=== PATIENT | female | born 1990 | race Caucasian/White ===

== ENCOUNTER 2016-07-01 13:23 | Inpatient (IN) | payer OTHER ==
[~2016-07-01] VITALS: Ht 170.2 cm; Wt 105.8 kg
--- NOTE | ~2016-07-01 | HC ---
[facility] [place] [address] CONSULTATION Name: JO ANN FRIAS Room #: 212-P ADM IN M.R.#: [id number] Admission: 07/01/16 Attend Phys: Adam Kauffman MD Discharge: Date of : 86 Report #: [id number] THIS REPORT FOR: //name// CC: JOSÉ physician/PCP Adam Kauffman DATE OF SERVICE: 07/02/2016. HISTORY OF PRESENT ILLNESS: This 25-year-old female is admitted with diabetic crisis with hyperglycemia and lactic acidosis. She recently had an infected left hand, possibly due to a spider bite. This was treated 2 weeks ago in [place] where she had debridement and amputation at about the level of the interphalangeal joint. She states she has had some ongoing pain and swelling, symptoms are slowly improving. She has moved back here to [place] and now has poor diabetic control and increased pain, the left hand. She has been admitted for further evaluation. At the time of my evaluation, she is just on the way to an MRI to evaluate the hand. She feels poorly in general and is febrile. Her primary complaint is the left hand and thumb. The thumb wound reveals a healing suture line at about the level of the interphalangeal joint. There is still some redness and warmth, but very minimal drainage. There is tenderness to palpation in the region of the incision line. There is not much pain more proximally, there is slight swelling of the hand and thenar eminence, but no redness or point tenderness and nothing which would suggest a significant flexor tenosynovitis nor abscess formation. The other digits look fine. More proximally, the wrist and forearm are unremarkable. She has no other areas of significant injury. At this point, I do not have radiographic imaging yet, I think it will be prudent to go ahead with MRI study and look for abscess or bony involvement or flexor tenosynovitis. At this point, however, the findings are more consistent with a soft tissue infection which has been adequately debrided, the suture line looks satisfactory at this point and I would be inclined to favor conservative management with ongoing appropriate antibiotics, rest, elevation with metabolic management for her poor diabetic control. I will comment further once the MRI is available for review. <ELECTRONICALLY SIGNED> By: Neeraj Shea MD 07/03/16 0912 1054 1307 Neeraj Shea MD /nt
--- NOTE | ~2016-07-01 | HC ---
[facility] [place] [address] CONSULTATION Name: JO ANN FIRAS Room #: 212-P ADM IN M.R.#: [id number] Admission: 07/01/16 Attend Phys: Adam Kauffman MD Discharge: Date of : 86 Report #: [id number] THIS REPORT FOR: //name// CC: JOSÉ physician/PCP Adam Kauffman INFECTIOUS DISEASES CONSULTATION REASON FOR CONSULTATION: I was asked to evaluate left hand following amputation 2 weeks ago of her first distal thumb due to a "spider bite." This was performed in [place]. Did not have the details of that hospitalization. She was dismissed on Bactrim, which she completed several days prior to her admission. She developed acute onset of nausea, vomiting and diarrhea. Along with diarrhea caused elevated blood sugars. She is a type 1 diabetic. Comes in with ketoacidosis. Still has a fair amount of pain in her left thumb and hand. No purulent drainage has been identified. REVIEW OF SYSTEMS: Notes no cough or sputum production. No dysuria. No other rashes. She has had MRSA, skin and soft tissue infection in the past. ALLERGIES: CODEINE, DOXYCYCLINE, FENTANYL, HYDROCODONE, PENICILLIN. MEDICATIONS: As noted on her MAR, which were reviewed. Vancomycin. PAST MEDICAL HISTORY: , diabetes, anxiety, left ovarian cyst, status post hysterectomy, cholecystectomy, right oophorectomy, appendectomy, diabetes, herniorrhaphy. FAMILY HISTORY: Heart disease and diabetes. SOCIAL HISTORY: Nonsmoker, no significant alcohol intake. Works for the [employer]. PHYSICAL EXAMINATION: VITAL SIGNS: Afebrile, hemodynamically stable. GENERAL: She was alert and cooperative. O2 saturation was normal on room air. HEENT: Unremarkable. LUNGS: Were clear. HEART: Regular without murmur. ABDOMEN: Soft and nontender. EXTREMITIES: Left thumb incision was well approximated. She had mild swelling, but no evidence of cellulitis. She was fairly tender thumb and the thenar region. Her wrist was unremarkable. Pulses in the wrist were normal. Sensation in the hand intact. LABORATORY STUDIES: Sodium 139, potassium 3.2, bicarbonate of 22, up from 17 on admission. BUN 3, creatinine 0.5, blood glucose 186, down from greater than [address] [address] CONSULTATION Name: JO ANN FRIAS Room #: [address] [place] [address] IN .R.#: [id number] Admission: 07/01/16 Attend Phys: Adam Kauffman MD Discharge: Date of : 86 Report #: [id number] on admission. Lactate 1.4. Drug screen positive for benzodiazepine. Hemoglobin 11.7, white count 8.5, platelet count 229,000. Differential unremarkable. Beta hCG negative. Urinalysis 3+ glucose, 1+ plus protein, no ketones. ABG on room air showed a pO2 of 100, pCO2 of 24, pH 7.4. Blood cultures are pending. Stool culture pending. Chest x-ray clear. MRI scan of her hand showed postoperative changes. IMPRESSION AND PLAN: A 25-year-old diabetic with DKA. Recent gangrene of her left distal thumb. Whether this was truly a brown recluse spider bite or was an ischemic event and secondary infection is yet to be determined. I would recommend that we continue vancomycin and obtain microbiology reports and operative report from her [facility]. Get her blood glucose under control, continue with dressing changes and will reevaluate in the next 24 hours. Discussed the case with Orthopedic Surgery. I agree no surgical intervention is necessary at this time. We would also check a stool for C. difficile considering her recent antibiotic use. <ELECTRONICALLY SIGNED> By: Keith Phelan MD 07/03/16 1027 1404 1844 Keith Phelan MD /nt
[~2016-07-01 13:23] MED LIST: ADVIL200 M1 PO; APAP650 PO; ATIVAN0.5 MG PO; BACTRIM DS TAB1 EACH PO; CIPROFLOXACIN500 M1 PO; COLACE 100 MG100 MG PO; DIFLUCAN150 M1 PO; ENDOCET 5-3251 EACH PO; GABAPENTIN600 M1 PO; GLIPIZIDE 10 MG10 MG PO; GLUCOTROL5 MG PO; HUMALOG PE100 UNIT/M SUBQ; IBUPROFEN 600600 M1 PO; LANTUS100 UNIT/M SUBQ; LOESTRIN1 EAC1 PO; LOPERAMIDE 2 MG2 M1 PO; LORTAB 10-3251 EACH PO; MACROBID 100 M100 M1 PO; METFORMIN HCL500 MG PO; MIRALAX17 GM PO; NAPROSYN500 MG PO; NEURONTIN300 MG PO; NOVOLOG100 UNIT/1 SUBQ; PAIN RELIEVER325 MG PO; PEPCID20 MG PO; PERCOCET 5-3251 EACH PO; PERCOCET 7.5-31 EACH PO; PERCOCET PO; PHENERGAN 25 MG25 M1 PO; PHENERGAN50 MG RC; PROMS25 WY RECTAL; REGLAN 10 MG TA10 MG PO; SENNA PO; TRAMADOL 50 MG50 MG PO; TRAZODONE HCL50 MG PO; TYLENOL325 MG PO; VALIUM5 MG PO; XANAX 0.5 MG0.5 MG PO; ZOFRAN ODT4 MG PO
[2016-07-01 13:27] VITALS: BP 146/81
[2016-07-01 14:16] LABS: ABG SAMPLE TYPE ARTERIAL; BE(vivo) -8.1 mmol/L (-2 to +3); LACTATE 5.03 mmol/L (0.5-2.0); O2(CT) 15.9 mL/dL (15.0-23.0); O2Hb 96.9 % (92.0-98.0); PCO2 24.6 mmHg (35.0-45.0); PO2 100.9 mmHg (80.0-100.0); STICK SITE R.RADIAL; pH 7.404 (7.360-7.450); sO2 97.8 % (92.0-98.0); tCO2 15.8 mmol/L (24.0-30.0)
[2016-07-01 14:18] LABS: URINE BILIRUBIN NEGATIVE (Negative); URINE BLOOD 1+ (Negative); URINE COLOR YELLOW; URINE GLUCOSE-RANDOM* 3+ (Negative); URINE KETONES NEGATIVE (Negative); URINE LEUKOCYTES-REFLEX NEGATIVE (Negative); URINE PROTEIN (DIPSTICK) NEGATIVE (Negative); URINE SPECIFIC GRAVITY <= 1.005 (1.003-1.035); URINE UROBILINOGEN 0.2 E.U./dl (0.2-1.0)
[2016-07-01 14:33] LABS: SQUAMOUS 4-10 Moderate /LPF (0-3)
[2016-07-01 14:34] LABS: CASTS None Seen /LPF (None Seen); CRYSTALS None Seen /LPF (None Seen); URINE RBC 3-10 Few /HPF (0-2); URINE WBC-REFLEX 0-5 Rare /HPF (0-5)
[2016-07-01 14:46] LABS: ABSOLUTE NEUTROPHILS 4.4 thou/uL (1.4-8.2); BASOPHILS 0.4 % (0.0-2.0); EOSINOPHILS 1.4 % (0.0-3.0); HEMOGLOBIN 11.7 gm/dL (12.0-15.0); LYMPHOCYTES 35.3 % (24.0-44.0); MCH 24.9 pg (26.0-34.0); MCHC 32.6 g/dL (28.0-37.0); MCV 76.3 fL (80.0-100.0); MONOCYTES 6.3 % (1.0-8.0); PLATELET COUNT 229 thou/uL (150-400); POLYS 56.6 % (36.0-66.0); RBC 4.72 mil/uL (4.20-5.00); RDW 16.6 % (10.5-14.5); WBC 8.5 thou/uL (4.0-11.0)
[2016-07-01 14:48] LABS: MANUAL DIFF NO
[2016-07-01 15:01] LABS: CALCIUM 9.4 mg/dL (8.5-10.1); CREATININE 0.9 mg/dL (0.6-1.0); POTASSIUM 4.2 mmol/L (3.5-5.1)
[2016-07-01 15:21] LABS: AMP/METHAMP Negative (Negative); BARBITURATES Negative (Negative); BENZODIAZEPINES POSITIVE (Negative); COCAINE Negative (Negative); METHADONE Negative (Negative); OPIATES Negative (Negative); PCP Negative (Negative); THC Negative (Negative)
[2016-07-01 18:24] VITALS: BP 150/87
[2016-07-01 20:19] VITALS: BP 143/101
[2016-07-01 20:30] VITALS: BP 148/91
[2016-07-01 22:01] VITALS: BP 146/92
[2016-07-01 23:00] VITALS: BP 146/97
[2016-07-02] VITALS (15 sets, daily range): BP systolic 132–176; BP diastolic 73–124
[2016-07-02 04:55] LABS: CALCIUM 8.6 mg/dL (8.5-10.1); CREATININE 0.5 mg/dL (0.6-1.0)
[2016-07-02 04:57] LABS: POTASSIUM 3.2 mmol/L (3.5-5.1)
[2016-07-03 00:32] VITALS: BP 142/87
[2016-07-03 04:26] VITALS: BP 131/75
[2016-07-03 07:38] LABS: HEMATOCRIT 31.3 % (37.0-47.0); HEMOGLOBIN 10.4 gm/dL (12.0-15.0); MCH 24.7 pg (26.0-34.0); MCHC 33.3 g/dL (28.0-37.0); MCV 74.1 fL (80.0-100.0); RBC 4.22 mil/uL (4.20-5.00); WBC 5.5 thou/uL (4.0-11.0)
[2016-07-03 07:48] VITALS: BP 147/88
[2016-07-03 08:38] LABS: CALCIUM 8.8 mg/dL (8.5-10.1); CREATININE 0.5 mg/dL (0.6-1.0); POTASSIUM 3.7 mmol/L (3.5-5.1)
[2016-07-03 10:55] VITALS: BP 143/95
[2016-07-03 16:00] VITALS: BP 145/88
[2016-07-03 19:45] VITALS: BP 150/101
[2016-07-04 07:09] LABS: HEMATOCRIT 32.1 % (37.0-47.0); HEMOGLOBIN 10.6 gm/dL (12.0-15.0); MCH 24.7 pg (26.0-34.0); MCV 74.7 fL (80.0-100.0); RBC 4.3 mil/uL (4.20-5.00); RDW 16.7 % (10.5-14.5); WBC 5.6 thou/uL (4.0-11.0)
[2016-07-04 07:17] LABS: CALCIUM 8.8 mg/dL (8.5-10.1); CREATININE 0.6 mg/dL (0.6-1.0); POTASSIUM 3.3 mmol/L (3.5-5.1)
[2016-07-04 07:45] VITALS: BP 157/106
[2016-07-04 16:19] VITALS: BP 146/93
[2016-07-04 20:00] VITALS: BP 151/91
[2016-07-05 04:00] VITALS: BP 136/86
[2016-07-05 05:29] LABS: HEMATOCRIT 31.4 % (37.0-47.0); HEMOGLOBIN 10.2 gm/dL (12.0-15.0); MCH 24.6 pg (26.0-34.0); MCHC 32.5 g/dL (28.0-37.0); MCV 75.8 fL (80.0-100.0); RBC 4.14 mil/uL (4.20-5.00); RDW 17.4 % (10.5-14.5); WBC 5.1 thou/uL (4.0-11.0)
[2016-07-05 05:40] LABS: CALCIUM 8.5 mg/dL (8.5-10.1); CREATININE 0.7 mg/dL (0.6-1.0); POTASSIUM 3.9 mmol/L (3.5-5.1)
[2016-07-05 09:07] VITALS: BP 123/86
[2016-07-05] MEDS ORDERED: PERCOCET 7.5-31 EACH PO (11:28)
[2016-07-05] MEDS ORDERED: BACTRIM DS TAB1 EAC1 PO (11:28)
[2016-07-05] MEDS ORDERED: OXYCODONE HCL 55 MG PO (11:37)
[2016-07-05] MEDS ORDERED: DIFLUCAN200 MG PO (11:37)
[2016-07-05 12:06] VITALS: BP 123/86
[2016-07-05 15:07] VITALS: BP 123/86
== END 2016-07-05 15:08 | disposition home or self-care (01) | DRG 872 ==
LOC: ER 13:23 → 2N 16:46 → EROBS 16:46 → ICU 18:24 → 2N 07-02 14:43 → 5S 07-03 11:03
PROVIDERS: Emergency Medicine; Internal Medicine
PROC: 02HV33Z Insertion of Infusion Device into Superior Vena Cava, Percutaneous Approach (ICD-10-PCS; principal; 2016-07-01)
PROC: B548ZZA Ultrasonography of Superior Vena Cava, Guidance (ICD-10-PCS; principal; 2016-07-01)
DX: A41.9 Sepsis, unspecified organism (principal); E87.1 Hypo-osmolality and hyponatremia; R65.20 Severe sepsis without septic shock; R19.7 Diarrhea, unspecified; L03.012 Cellulitis of left finger; E10.65 Type 1 diabetes mellitus with hyperglycemia; F41.9 Anxiety disorder, unspecified; E83.42 Hypomagnesemia; Z90.49 Acquired absence of other specified parts of digestive tract; Z90.721 Acquired absence of ovaries, unilateral; Z88.6 Allergy status to analgesic agent; Z88.1 Allergy status to other antibiotic agents; Z88.0 Allergy status to penicillin; Z79.899 Other long term (current) drug therapy; Z86.14 Personal history of Methicillin resistant Staphylococcus aureus infection; Z79.4 Long term (current) use of insulin; Z83.3 Family history of diabetes mellitus; Z82.49 Family history of ischemic heart disease and other diseases of the circulatory system; Z90.710 Acquired absence of both cervix and uterus; Z89.012 Acquired absence of left thumb
CPT/HCPCS: 10078; 10081; 10785; 27000

== ENCOUNTER 2017-02-16 19:26 | Inpatient (IN) | payer OTHER ==
[~2017-02-16] VITALS: Ht 170.2 cm; Wt 95.3 kg
[~2017-02-16 19:26] MED LIST changes: +BACTRIM DS TAB1 EAC1 PO; +DIFLUCAN200 MG PO; +IRON325 PO; +NEURONTIN 300300 M1 PO; +OXYCODONE HCL 55 MG PO; +SENOKOT-S1 TA1 PO
[2017-02-16 19:29] VITALS: BP 125/66
[2017-02-16 20:24] LABS: HEMATOCRIT 31.1 % (37.0-47.0); HEMOGLOBIN 9.6 gm/dL (12.0-15.0); MCH 23.4 pg (26.0-34.0); MCHC 30.9 g/dL (28.0-37.0); MCV 75.6 fL (80.0-100.0); PLATELET COUNT 196 thou/uL (150-400); RBC 4.11 mil/uL (4.20-5.00); RDW 23.1 % (10.5-14.5); WBC 4.8 thou/uL (4.0-11.0)
[2017-02-16 20:36] LABS: ALBUMIN 3.4 g/dL (3.4-5.0); ANION GAP 12 mmol/L (7-16); BUN 7 mg/dL (7-18); CALCIUM 8.1 mg/dL (8.5-10.1); CHLORIDE 95 mmol/L (98-107); CO2 20 mmol/L (21-32); CREATININE 0.9 mg/dL (0.6-1.0); DIRECT BILIRUBIN < 0.1 mg/dL (<0.1-0.3); LIPASE 116 U/L (73-393); POTASSIUM 3.9 mmol/L (3.5-5.1); SGOT 21 U/L (15-37); SGPT 30 U/L (30-65); SODIUM 127 mmol/L (136-145); TOTAL BILIRUBIN 0.3 mg/dL (<0.1-1.0); TOTAL PROTEIN 6.8 g/dL (6.4-8.2)
[2017-02-16 20:38] LABS: GLUCOSE 558 mg/dL (74-106)
[2017-02-16 20:45] LABS: ABSOLUTE NEUTROPHILS 2.9 thou/uL (1.4-8.2); ANISOCYTOSIS 2+; HYPOCHROMASIA 1+
[2017-02-16 21:06] LABS: URINE BILIRUBIN NEGATIVE (Negative); URINE BLOOD NEGATIVE (Negative); URINE CLARITY CLEAR; URINE COLOR YELLOW; URINE GLUCOSE-RANDOM* 3+ (Negative); URINE KETONES NEGATIVE (Negative); URINE LEUKOCYTES-REFLEX NEGATIVE (Negative); URINE NITRITE-REFLEX NEGATIVE (Negative); URINE PROTEIN (DIPSTICK) NEGATIVE (Negative); URINE SPECIFIC GRAVITY <= 1.005 (1.005-1.035); URINE UROBILINOGEN 0.2 E.U./dl (0.2-1.0)
[2017-02-17] VITALS (7 sets, daily range): BP systolic 114–137; BP diastolic 64–94
[2017-02-17 07:35] LABS: HEMATOCRIT 28.8 % (37.0-47.0); HEMOGLOBIN 9.4 gm/dL (12.0-15.0); MCH 24.2 pg (26.0-34.0); MCHC 32.5 g/dL (28.0-37.0); MCV 74.6 fL (80.0-100.0); RBC 3.87 mil/uL (4.20-5.00); RDW 23.6 % (10.5-14.5); WBC 4.5 thou/uL (4.0-11.0)
[2017-02-17 07:46] LABS: CALCIUM 8.5 mg/dL (8.5-10.1); CREATININE 0.5 mg/dL (0.6-1.0); POTASSIUM 3.4 mmol/L (3.5-5.1)
[2017-02-18 03:25] VITALS: BP 135/82
[2017-02-18 08:00] VITALS: BP 116/67
[2017-02-18] MEDS ORDERED: CLEOCIN HCL150 MG PO (10:12)
[2017-02-18] MEDS ORDERED: TRAMADOL 50 MG50 MG PO (10:12)
[2017-02-18 12:23] VITALS: BP 116/67
[2017-09-26] MEDS ORDERED: ZOFRAN ODT4 MG PO (23:31)
[2017-09-26] MEDS ORDERED: PROMS25 WY RECTAL (23:31)
[2017-09-26] MEDS ORDERED: PHENERGAN 25 MG25 M1 PO (23:31)
== END 2017-02-19 05:25 | disposition home or self-care (01) | DRG 602 ==
LOC: ER 19:26 → 4N 02-17 00:13
PROVIDERS: Emergency Medicine; Nurse Practitioner Family
DX: L03.011 Cellulitis of right finger (principal); E10.10 Type 1 diabetes mellitus with ketoacidosis without coma; F31.9 Bipolar disorder, unspecified; D64.9 Anemia, unspecified; F41.9 Anxiety disorder, unspecified; Z98.891 History of uterine scar from previous surgery; Z90.49 Acquired absence of other specified parts of digestive tract; Z90.721 Acquired absence of ovaries, unilateral; Z89.012 Acquired absence of left thumb; Z79.4 Long term (current) use of insulin; Z79.899 Other long term (current) drug therapy; Z88.5 Allergy status to narcotic agent; Z88.0 Allergy status to penicillin; Z88.8 Allergy status to other drugs, medicaments and biological substances; Z83.3 Family history of diabetes mellitus; Z82.49 Family history of ischemic heart disease and other diseases of the circulatory system
CPT/HCPCS: 10091

== ENCOUNTER 2017-03-23 22:33 | Emergency (ER) | payer OTHER ==
[~2017-03-23] VITALS: Ht 170.2 cm; Wt 97.5 kg
[~2017-03-23 22:33] MED LIST changes: +CLEOCIN HCL150 MG PO
[2017-03-23 23:34] LABS: BE(vivo) -5.7 mmol/L (-2 to +3); HCO3 18.9 mmol/L (22.0-26.0); PCO2 VENOUS 33.9 mmHg (41.0-51.0); PO2 VENOUS 37.7 mmHg (35.0-45.0)
[2017-03-24 00:06] LABS: ABSOLUTE NEUTROPHILS 3.5 thou/uL (1.4-8.2); BASOPHILS 0.5 % (0.0-2.0); EOSINOPHILS 3.3 % (0.0-3.0); HEMATOCRIT 32.6 % (37.0-47.0); HEMOGLOBIN 10.7 gm/dL (12.0-15.0); LYMPHOCYTES 38.6 % (24.0-44.0); MCH 24.4 pg (26.0-34.0); MCHC 32.8 g/dL (28.0-37.0); MCV 74.4 fL (80.0-100.0); MONOCYTES 5.5 % (1.0-8.0); PLATELET COUNT 268 thou/uL (150-400); POLYS 52.1 % (36.0-66.0); RBC 4.38 mil/uL (4.20-5.00); RDW 18.5 % (10.5-14.5); WBC 6.8 thou/uL (4.0-11.0)
[2017-03-24 00:07] LABS: CALCIUM 8.6 mg/dL (8.5-10.1); CREATININE 0.6 mg/dL (0.6-1.0); POTASSIUM 3.2 mmol/L (3.5-5.1)
[2017-03-24 00:13] LABS: ALBUMIN 3.5 g/dL (3.4-5.0); TOTAL BILIRUBIN 0.2 mg/dL (<0.1-1.0)
[2017-03-24] MEDS ORDERED: ONDANSETRON HCL4 M2 PO ×2 (00:45→00:53)
[2017-03-24] MEDS ORDERED: DOXYCYCLINE 10100 MG PO (00:45)
[2017-03-24] MEDS ORDERED: CLEOCIN HCL150 MG PO (00:52)
[2017-03-24 02:09] VITALS: BP 127/83
[2017-09-26] MEDS ORDERED: PROMS25 WY RECTAL (23:31)
[2017-09-26] MEDS ORDERED: PHENERGAN 25 MG25 M1 PO (23:31)
[2017-09-26] MEDS ORDERED: ZOFRAN ODT4 MG PO (23:31)
== END 2017-03-24 02:10 | disposition home or self-care (01) ==
LOC: ER 22:33
PROVIDERS: Physician Assistant
DX: S61.206D Unspecified open wound of right little finger without damage to nail, subsequent encounter (principal); X58.XXXD Exposure to other specified factors, subsequent encounter; E11.9 Type 2 diabetes mellitus without complications; F41.9 Anxiety disorder, unspecified; Z90.49 Acquired absence of other specified parts of digestive tract; Z88.0 Allergy status to penicillin; Z88.5 Allergy status to narcotic agent

== ENCOUNTER 2017-04-25 17:05 | Inpatient (IN) | payer OTHER ==
[~2017-04-25] VITALS: Ht 170.2 cm; Wt 95.3 kg
--- NOTE | ~2017-04-25 | HC ---
[facility] [place] [address] CONSULTATION Name: JO ANN FRIAS Room #: 447-P [facility] IN M.R.#: [id number] Admission: 04/25/17 Attend Phys: Fei Mcgee DO Discharge: 04/28/17 Date of : 88 Report #: [id number] THIS REPORT FOR: //name// CC: FAM unknown Fei Mcgee DATE OF SERVICE: 04/26/2017 HISTORY OF PRESENT ILLNESS: This is a 26-year-old female with poorly controlled insulin-dependent diabetes and peripheral vascular disease, who presents with a new infection involving the right hand. 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 I believe she has had a wound at the right hand, fifth metacarpophalangeal joint, which was treated elsewhere with surgical debridement about 3 weeks ago. I understand she had an MRI which did show evidence of joint fluid and possible bony involvement. I understand cultures at that time have remained no growth. She has been on ongoing antibiotics. She now presents with persistent pain and mild swelling noting some drainage from the edges of the old surgical wound. At the time of my evaluation, she is somewhat emotional and clearly has difficulty with pain management and chronic health issues. She notes the right hand is painful and puffy and notes a bit of tingling and numbness involving the fifth finger. Objectively however, there is a fairly clean and dry longitudinal wound over the dorsal aspect of the fifth metacarpophalangeal joint. There is just a bit of open granulating tissue at the upper and lower aspect of this wound. However, at this point, there is no drainage. There is no apparent purulence. There is only minor swelling and no significant redness or warmth around this area. She does have generalized discomfort and stiffness at the fifth metacarpophalangeal joint consistent with synovitis and inflammation. The distal finger appears to be well perfused. There are no significant problems more proximally along the hand or forearm. We do not have new x-rays or MRI study and I do not have the outside MRI available for review. At this point, I doubt that further surgical debridement would be necessary given the current appearance, but I think a new MRI study would be appropriate. Hopefully, we can compare with the previous MRI study if that one is available as well. At this point, I would continue with her current rest, elevation and IV antibiotic regimen. I will defer to Infectious Disease with regard to her medical management. Pending the MRI findings, I may ask my partner, Dr. Hudson to see her as well if she is available. <ELECTRONICALLY SIGNED> By: Neeraj Shea MD 04/30/17 0750 1225 1327 Neeraj Shea MD /nt
[~2017-04-25 17:05] MED LIST changes: +DOXYCYCLINE 10100 MG PO; +ONDANSETRON HCL4 M2 PO
[2017-04-25 17:08] VITALS: BP 138/86
[2017-04-25] MEDS ORDERED: QUETIAPINE FUM100 MG PO (17:52)
[2017-04-25 18:32] LABS: ABSOLUTE NEUTROPHILS 3.4 thou/uL (1.4-8.2); BASOPHILS 0.5 % (0.0-2.0); EOSINOPHILS 1.9 % (0.0-3.0); HEMATOCRIT 34.2 % (37.0-47.0); HEMOGLOBIN 10.8 gm/dL (12.0-15.0); LYMPHOCYTES 28.4 % (24.0-44.0); MCH 24.1 pg (26.0-34.0); MCHC 31.6 g/dL (28.0-37.0); MCV 76.1 fL (80.0-100.0); MONOCYTES 8.7 % (1.0-8.0); PLATELET COUNT 216 thou/uL (150-400); POLYS 60.5 % (36.0-66.0); RBC 4.49 mil/uL (4.20-5.00); RDW 19.2 % (10.5-14.5); WBC 5.6 thou/uL (4.0-11.0)
[2017-04-25 18:46] LABS: CALCIUM 9.2 mg/dL (8.5-10.1); POTASSIUM 4.1 mmol/L (3.5-5.1)
[2017-04-25 18:49] LABS: ALBUMIN 3.8 g/dL (3.4-5.0); TOTAL BILIRUBIN 0.3 mg/dL (<0.1-1.0); TOTAL PROTEIN 7.7 g/dL (6.4-8.2)
[2017-04-25 19:03] LABS: ANISOCYTOSIS 1+; OVALOCYTES OCCASIONAL
[2017-04-25 19:21] LABS: URINE BILIRUBIN NEGATIVE (Negative); URINE BLOOD 1+ (Negative); URINE CLARITY CLEAR; URINE COLOR YELLOW; URINE GLUCOSE-RANDOM* 3+ (Negative); URINE KETONES NEGATIVE (Negative); URINE LEUKOCYTES-REFLEX NEGATIVE (Negative); URINE NITRITE-REFLEX NEGATIVE (Negative); URINE PROTEIN (DIPSTICK) NEGATIVE (Negative); URINE SPECIFIC GRAVITY <= 1.005 (1.005-1.035); URINE UROBILINOGEN 0.2 E.U./dl (0.2-1.0)
[2017-04-25 19:34] LABS: BACTERIA-REFLEX None Seen /HPF (None Seen); CASTS None Seen /LPF (None Seen); SQUAMOUS 4-10 Moderate /LPF (0-3); URINE RBC 0-2 Rare /HPF (0-2); URINE WBC-REFLEX None Seen /HPF (0-5)
[2017-04-25 19:35] LABS: CRYSTALS None Seen /LPF (None Seen); YEAST-REFLEX Present (None Seen)
[2017-04-25 20:15] LABS: BE(vivo) -5.8 mmol/L (-2 to +3); HCO3 18.9 mmol/L (22.0-26.0); PCO2 VENOUS 34.7 mmHg (41.0-51.0); PO2 VENOUS 51.2 mmHg (35.0-45.0)
[2017-04-25 20:39] VITALS: BP 141/88
[2017-04-25 20:59] VITALS: BP 117/90
[2017-04-26 02:43] LABS: HEMATOCRIT 33.9 % (37.0-47.0); HEMOGLOBIN 10.9 gm/dL (12.0-15.0); MCH 23.9 pg (26.0-34.0); MCV 74.7 fL (80.0-100.0); RBC 4.54 mil/uL (4.20-5.00); RDW 19.3 % (10.5-14.5); WBC 6.3 thou/uL (4.0-11.0)
[2017-04-26 02:48] LABS: CREATININE 0.7 mg/dL (0.6-1.0); POTASSIUM 3.6 mmol/L (3.5-5.1)
[2017-04-26 04:02] VITALS: BP 134/80
[2017-04-26 08:28] VITALS: BP 131/87
[2017-04-26 16:15] VITALS: BP 144/82
[2017-04-26 21:32] VITALS: BP 130/92
[2017-04-27 03:40] VITALS: BP 125/82
[2017-04-27 06:18] LABS: ABSOLUTE NEUTROPHILS 3.4 thou/uL (1.4-8.2); BASOPHILS 0.2 % (0.0-2.0); EOSINOPHILS 2.3 % (0.0-3.0); HEMATOCRIT 30.6 % (37.0-47.0); HEMOGLOBIN 9.8 gm/dL (12.0-15.0); LYMPHOCYTES 20.6 % (24.0-44.0); MCH 24.2 pg (26.0-34.0); MCHC 32.2 g/dL (28.0-37.0); MCV 75.2 fL (80.0-100.0); MONOCYTES 6.4 % (1.0-8.0); PLATELET COUNT 188 thou/uL (150-400); POLYS 70.5 % (36.0-66.0); RBC 4.07 mil/uL (4.20-5.00); RDW 19.8 % (10.5-14.5); WBC 4.9 thou/uL (4.0-11.0)
[2017-04-27 06:31] LABS: CALCIUM 8.1 mg/dL (8.5-10.1); CREATININE 0.6 mg/dL (0.6-1.0); POTASSIUM 3.6 mmol/L (3.5-5.1)
[2017-04-27 08:35] VITALS: BP 126/72
[2017-04-27 13:45] VITALS: BP 121/80
[2017-04-27 16:37] VITALS: BP 118/72
[2017-04-27 19:20] VITALS: BP 112/69
[2017-04-28 04:00] VITALS: BP 99/61
[2017-04-28 08:00] VITALS: BP 123/71
[2017-04-28] MEDS ORDERED: LINEZOLID600 MG PO (08:20)
[2017-04-28] MEDS ORDERED: TRAMADOL 50 MG50 MG PO (08:21)
[2017-04-28 15:21] VITALS: BP 123/71
[2017-09-26] MEDS ORDERED: PHENERGAN 25 MG25 M1 PO (23:31)
[2017-09-26] MEDS ORDERED: PROMS25 WY RECTAL (23:31)
[2017-09-26] MEDS ORDERED: ZOFRAN ODT4 MG PO (23:31)
== END 2017-04-28 16:30 | disposition home or self-care (01) | DRG 638 ==
LOC: ER 17:05 → EROBS 20:36 → 4S 21:33
PROVIDERS: Emergency Medicine; Family Medicine; Nurse Practitioner Family
DX: E11.65 Type 2 diabetes mellitus with hyperglycemia (principal); E87.2 Acidosis; L03.113 Cellulitis of right upper limb; F41.9 Anxiety disorder, unspecified; E86.0 Dehydration; Z90.49 Acquired absence of other specified parts of digestive tract; Z89.012 Acquired absence of left thumb; Z79.899 Other long term (current) drug therapy; Z88.5 Allergy status to narcotic agent; Z88.6 Allergy status to analgesic agent; Z88.0 Allergy status to penicillin; Z88.8 Allergy status to other drugs, medicaments and biological substances; Z82.49 Family history of ischemic heart disease and other diseases of the circulatory system; Z83.3 Family history of diabetes mellitus
CPT/HCPCS: 10100

== ENCOUNTER 2017-08-16 20:07 | Inpatient (IN) | payer OTHER ==
[~2017-08-16] VITALS: Ht 170.2 cm; Wt 103.4 kg
--- NOTE | ~2017-08-16 | EKG ---
[address] [place] [address] ELECTROCARDIOGRAM REPORT Name: JO ANN FRIAS Room #: 455-P ADM IN M.R.#: [id number] Admission: 08/17/17 Attend Phys: Edwin Catalan Discharge: Date of : 86 Report #: [id number] THIS REPORT FOR: //name// [facility] ED Test Date: 2017-08-16 Test Time: 20:54:30 Pat Name: JO ANN FRIAS Department: Room: Gender: F Tier And Detonator: DANIEL : 1990 Requested By: Yuriy Telles Order Number: [id number] MD: Jas Powers Measurements Intervals [place] Rate: 115 P: 53 TX: 174 QRS: 81 QRSD: 80 T: 14 QT: 347 QTc: 480 Interpretive Statements Sinus tachycardia Poor R wave progression Nonspecific T wave abnormality Compared to ECG 08/15/2016 11:04:57 No significant change was found Electronically Signed On 08-17-2017 8:14:21 CDT by Jas Powers [email or web address] <ELECTRONICALLY SIGNED> By: Jas Powers MD, [facility] 08/17/17813 53 53 Jas Powers MD, [facility] /EPI
--- NOTE | ~2017-08-16 | HC ---
[facility] [place] [address] CONSULTATION Name: JO ANN FRIAS Room #: 455-P ADM IN M.R.#: [id number] Admission: 08/17/17 Attend Phys: Edwin Catalan Discharge: Date of : 86 Report #: [id number] THIS REPORT FOR: //name// CC: FAM unknown Edwin Catalan DATE OF SERVICE: 08/17/2017 REFERRING PROVIDER: Edwin Catalan MD. REASON FOR CONSULT: Abdominal pain. HISTORY OF PRESENT ILLNESS: The patient is a 27-year-old obese female known to us from multiple prior admissions at [facility] with questionable malingering whereby she had multiple infected power ports and a finger abscess that required debridement. The patient now presents to the Emergency Room at [facility] with nausea, vomiting and hyperglycemia where her blood sugars were found to be greater than 600 on admission. The patient has had a prior umbilical hernia repair with mesh as well as a cholecystectomy, appendectomy and oophorectomy and complains of significant bulging throughout her abdominal wall that has begun only over the past 2 days. She states she felt something pop out from her abdomen and that is when the nausea and vomiting started. CT scan of the abdomen and pelvis was obtained and no mention was made of abdominal wall hernia and per my review, I see no evidence of herniation whatsoever as well. But, it was for her abdominal pain with bulging that I am asked to evaluate. PAST MEDICAL HISTORY: Diabetes mellitus, chronic anemia, anxiety, prior cholecystectomy, oophorectomy and umbilical hernia repair with mesh. HOME MEDICATIONS: Valium, insulin Lantus, iron, Seroquel, insulin glargine, insulin lispro. ALLERGIES: SEVERAL AND INCLUDE PENICILLIN, DOXYCYCLINE, FENTANYL, HYDROCODONE AND CODEINE. FAMILY HISTORY: Reviewed and noncontributory. SOCIAL HISTORY: The patient does not utilize tobacco, alcohol or illicit drugs. REVIEW OF SYSTEMS: GENERAL: The patient denies nocturnal fevers or chills. HEENT: No change in vision, change in hearing. NECK: No swelling or difficulty swallowing. HEART: No chest pain or palpitations. LUNGS: No cough or shortness of breath. [facility] [address] [place] [address] CONSULTATION Name: JO ANN FRIAS Room #: 455-P [facility] IN M.R.#: [id number] Admission: 08/17/17 Attend Phys: Edwin Catalan Discharge: Date of : 86 Report #: [id number] ABDOMEN: Abdominal pain, nausea and vomiting. GENITOURINARY: No dysuria or hematuria. ENDOCRINE: No polyuria or polydipsia. HEMATOLOGIC: No history of bleeding or easy bruising. EXTREMITIES: No history of weakness or limited range of motion. NEUROLOGIC: No history of syncope or near syncopal episodes. SKIN AND INTEGUMENT: No history of abnormal lesions or moles. PSYCHIATRIC: Positive history of anxiety and depression. PHYSICAL EXAMINATION: VITAL SIGNS: Temperature 97.9, pulse 100, respirations 19, blood pressure 140/84. She is 5 feet 7 inches tall and weighs 228 pounds. GENERAL: Alert, in no acute distress. HEENT: Normocephalic, atraumatic. Pupils equal, round, reactive to light. NECK: Supple without lymphadenopathy. Trachea midline. HEART: Regular rate and rhythm. LUNGS: Clear to auscultation bilaterally. ABDOMEN: Obese, soft, nontender, nondistended. She has no evidence of palpable herniation, although she does have a wide rectus diastasis. GENITOURINARY: Normal external female genitalia. EXTREMITIES: No clubbing, cyanosis or edema. NEUROLOGIC: Cranial nerves 2-12 are grossly intact. PSYCHIATRIC: Normal mood and affect. SKIN AND INTEGUMENT: No abnormal lesions or moles. LABORATORY AND X-RAY DATA: CBC showed a white blood cell count of 5.2 thousand, hemoglobin 9.9, platelets 237,000. Creatinine was 1.0, glucose 623. Liver function enzymes normal. Monospot was negative. Lactic acid normal at 1.9. CT scan of the abdomen and pelvis shows bladder distention and hepatosplenomegaly, but no evidence of herniation. ASSESSMENT AND PLAN: A 27-year-old obese female who has been admitted multiple times for infected ports and abscess of her thumb with some question of malingering, who presents with abdominal pain, nausea and vomiting and a "bulge" in her abdominal wall. The patient was found to be bordering on diabetic ketoacidosis with blood sugars above 600 upon admission and is undergoing aggressive measures to improve her blood sugar at this time. Physical exam shows evidence of a rectus diastasis, but no palpable evidence of an incisional hernia whatsoever at this time. I did discuss with the patient at the bedside today and she voices understanding. At this time, I recommend continuation of ongoing IV fluids, diabetic diet, tight blood sugar control and I will be happy to follow for her mild abdominal pain and intermittent nausea and vomiting, although I do suspect these are secondary to her blood sugar issues. [facility] [address] [place] [address] CONSULTATION Name: JO ANN FRIAS Room #: 455-P ADM IN M.R.#: [id number] Admission: 08/17/17 Attend Phys: Edwin Catalan Discharge: Date of : 86 Report #: [id number] I sincerely appreciate this consult and will leave any further recommendations in the patient's chart as appropriate. <ELECTRONICALLY SIGNED> By: Wendy Diaz MD, FACS 08/19/17 1000 1523 2103 Wendy Diaz MD, FACS /nt
[~2017-08-16 20:07] MED LIST changes: +LINEZOLID600 MG PO; +QUETIAPINE FUM100 MG PO
[2017-08-16 20:35] LABS: URINE BILIRUBIN NEGATIVE (Negative); URINE BLOOD 1+ (Negative); URINE CLARITY CLEAR; URINE COLOR YELLOW; URINE GLUCOSE-RANDOM* 3+ (Negative); URINE KETONES NEGATIVE (Negative); URINE LEUKOCYTES-REFLEX NEGATIVE (Negative); URINE NITRITE-REFLEX NEGATIVE (Negative); URINE PROTEIN (DIPSTICK) NEGATIVE (Negative); URINE SPECIFIC GRAVITY <= 1.005 (1.005-1.035); URINE UROBILINOGEN 0.2 E.U./dl (0.2-1.0)
[2017-08-16 20:44] LABS: BACTERIA-REFLEX 1-9 Few /HPF (None Seen); CASTS None Seen /LPF (None Seen); CRYSTALS None Seen /LPF (None Seen); SQUAMOUS 0-3 Few /LPF (0-3); URINE RBC 0-2 Rare /HPF (0-2); URINE WBC-REFLEX 0-5 Rare /HPF (0-5); YEAST-REFLEX Present (None Seen)
[2017-08-16 21:00] VITALS: BP 139/100
[2017-08-16 22:06] LABS: BE(vivo) -7.1 mmol/L (-2 to +3); HCO3 18.3 mmol/L (22.0-26.0); PCO2 VENOUS 36.3 mmHg (41.0-51.0); PO2 VENOUS 38.7 mmHg (35.0-45.0)
[2017-08-16 22:07] LABS: ABSOLUTE NEUTROPHILS 2.8 thou/uL (1.4-8.2); BASOPHILS 0.7 % (0.0-2.0); EOSINOPHILS 2.1 % (0.0-3.0); HEMATOCRIT 32.3 % (37.0-47.0); HEMOGLOBIN 9.9 gm/dL (12.0-15.0); LYMPHOCYTES 33.8 % (24.0-44.0); MCH 22.6 pg (26.0-34.0); MCHC 30.8 g/dL (28.0-37.0); MCV 73.6 fL (80.0-100.0); MONOCYTES 9.1 % (1.0-8.0); PLATELET COUNT 237 thou/uL (150-400); POLYS 54.3 % (36.0-66.0); RBC 4.39 mil/uL (4.20-5.00); RDW 17.1 % (10.5-14.5); WBC 5.2 thou/uL (4.0-11.0)
[2017-08-16 22:19] LABS: CALCIUM 8.9 mg/dL (8.5-10.1); POTASSIUM 3.9 mmol/L (3.5-5.1)
[2017-08-16] MEDS ORDERED: HUMALOG100 UNIT/1 SUBQ (22:21)
[2017-08-16] MEDS ORDERED: LANTUS SUBQ ×2 (22:21)
[2017-08-16 22:22] LABS: ALBUMIN 3.7 g/dL (3.4-5.0); TOTAL BILIRUBIN 0.4 mg/dL (<0.1-1.0); TOTAL PROTEIN 7.9 g/dL (6.4-8.2)
[2017-08-16 22:35] LABS: ANISOCYTOSIS 2+; HYPOCHROMASIA SLIGHT; MICROCYTES 1+; POLYCHROMASIA OCCASIONAL
[2017-08-17 00:55] VITALS: BP 147/85
[2017-08-17 01:09] VITALS: BP 138/62
[2017-08-17 02:20] VITALS: BP 130/103
[2017-08-17 07:40] VITALS: BP 140/84
[2017-08-17 13:14] LABS: % SATURATION 5 % (20-39); IRON 22 ug/dL (50-170); TIBC 470 ug/dL (250-450)
[2017-08-17 15:02] LABS: CALCIUM 8.2 mg/dL (8.5-10.1); CREATININE 0.6 mg/dL (0.6-1.0); POTASSIUM 3.4 mmol/L (3.5-5.1)
[2017-08-17 16:35] VITALS: BP 140/84
[2017-08-17 17:59] LABS: PROTIME 10.7 Seconds (9.3-11.4)
[2017-08-17 18:01] LABS: CALCIUM 8.5 mg/dL (8.5-10.1); CREATININE 0.5 mg/dL (0.6-1.0); POTASSIUM 3.6 mmol/L (3.5-5.1)
[2017-08-17 19:42] VITALS: BP 139/91
[2017-08-18 01:06] LABS: IgG 766 mg/dL (700-1600)
[2017-08-18 02:07] LABS: HAV IgM AB (ANTI-HAV IgM) Negative (Negative); HEPATITIS B SURFACE AG Negative (Negative); HEPATITIS C VIRUS AB 0.1 (0.0-0.9)
[2017-08-18 03:37] VITALS: BP 124/85
[2017-08-18 07:32] VITALS: BP 124/63
[2017-08-18 11:52] LABS: CALCIUM 8.3 mg/dL (8.5-10.1); CREATININE 0.6 mg/dL (0.6-1.0); POTASSIUM 3.9 mmol/L (3.5-5.1)
[2017-08-18 16:20] VITALS: BP 127/61
[2017-08-18 20:35] VITALS: BP 117/76
[2017-08-19] MEDS ORDERED: OXYCODONE HCL 55 MG PO (03:13)
[2017-08-19 04:00] VITALS: BP 121/63
[2017-08-19 05:53] LABS: ALBUMIN 2.9 g/dL (3.4-5.0); CALCIUM 8.3 mg/dL (8.5-10.1); CREATININE 0.8 mg/dL (0.6-1.0); POTASSIUM 4.1 mmol/L (3.5-5.1); TOTAL BILIRUBIN 0.3 mg/dL (<0.1-1.0); TOTAL PROTEIN 6.6 g/dL (6.4-8.2)
[2017-08-19 08:00] VITALS: BP 106/56
[2017-08-19 16:54] VITALS: BP 131/80
[2017-08-19 19:33] VITALS: BP 114/77
[2017-08-20 04:03] VITALS: BP 109/75
[2017-08-20 08:00] VITALS: BP 104/58
[2017-08-20 12:20] VITALS: BP 104/58
[2017-08-20 13:14] LABS: ANA INTERPRETATION Negative (Negative); CERULOPLASMIN 40.7 mg/dL (19.0-39.0)
== END 2017-08-20 17:27 | disposition home or self-care (01) | DRG 637 ==
LOC: ER 20:07 → EROBS 08-17 00:36 → 4W 08-17 00:36
PROVIDERS: Hospitalist; Nurse Practitioner; Physician Assistant
PROC: 05HY33Z Insertion of Infusion Device into Upper Vein, Percutaneous Approach (ICD-10-PCS; principal; 2017-08-17)
PROC: B54MZZA Ultrasonography of Right Upper Extremity Veins, Guidance (ICD-10-PCS; principal; 2017-08-17)
DX: E10.10 Type 1 diabetes mellitus with ketoacidosis without coma (principal); Q79.59 Other congenital malformations of abdominal wall; E87.1 Hypo-osmolality and hyponatremia; N39.0 Urinary tract infection, site not specified; F68.10 Factitious disorder imposed on self, unspecified; E10.65 Type 1 diabetes mellitus with hyperglycemia; E86.0 Dehydration; K43.9 Ventral hernia without obstruction or gangrene; F41.9 Anxiety disorder, unspecified; E66.9 Obesity, unspecified; R74.8 Abnormal levels of other serum enzymes; R16.2 Hepatomegaly with splenomegaly, not elsewhere classified; D50.9 Iron deficiency anemia, unspecified; N32.89 Other specified disorders of bladder; Z86.14 Personal history of Methicillin resistant Staphylococcus aureus infection; Z68.35 Body mass index [BMI] 35.0-35.9, adult; Z98.891 History of uterine scar from previous surgery; Z90.49 Acquired absence of other specified parts of digestive tract; Z90.721 Acquired absence of ovaries, unilateral; Z89.012 Acquired absence of left thumb; Z79.4 Long term (current) use of insulin; Z79.899 Other long term (current) drug therapy; Z88.0 Allergy status to penicillin; Z88.5 Allergy status to narcotic agent; Z88.8 Allergy status to other drugs, medicaments and biological substances; Z82.49 Family history of ischemic heart disease and other diseases of the circulatory system; Z83.3 Family history of diabetes mellitus
CPT/HCPCS: 10040; 27000

== ENCOUNTER 2017-11-21 16:48 | Inpatient (IN) | payer OTHER ==
[~2017-11-21] VITALS: Ht 170.2 cm; Wt 98.9 kg
[~2017-11-21 16:48] MED LIST changes: +HUMALOG100 UNIT/1 SUBQ; +LANTUS SUBQ
[2017-11-21 17:01] VITALS: BP 131/74
[2017-11-21 18:13] LABS: ABSOLUTE NEUTROPHILS 2.5 thou/uL (1.4-8.2); BASOPHILS 0.6 % (0.0-2.0); EOSINOPHILS 2.6 % (0.0-3.0); HEMATOCRIT 34.3 % (37.0-47.0); HEMOGLOBIN 11.2 gm/dL (12.0-15.0); LYMPHOCYTES 37.5 % (24.0-44.0); MCH 25.3 pg (26.0-34.0); MCHC 32.8 g/dL (28.0-37.0); MCV 77.2 fL (80.0-100.0); MONOCYTES 7.2 % (1.0-8.0); PLATELET COUNT 262 thou/uL (150-400); POLYS 52.1 % (36.0-66.0); RBC 4.44 mil/uL (4.20-5.00); RDW 15.6 % (10.5-14.5); WBC 4.7 thou/uL (4.0-11.0)
[2017-11-21 18:18] LABS: BE(vivo) 0.7 mmol/L (-2 to +3); HCO3 26.2 mmol/L (22.0-26.0); PCO2 VENOUS 45.5 mmHg (41.0-51.0); PO2 VENOUS 36.7 mmHg (35.0-45.0)
[2017-11-21 18:26] LABS: CALCIUM 9.5 mg/dL (8.5-10.1); CREATININE 0.9 mg/dL (0.6-1.0); POTASSIUM 4.4 mmol/L (3.5-5.1)
[2017-11-21 18:29] LABS: ALBUMIN 3.6 g/dL (3.4-5.0); TOTAL BILIRUBIN 0.4 mg/dL (<0.1-1.0); TOTAL PROTEIN 8.3 g/dL (6.4-8.2)
[2017-11-21 20:46] VITALS: BP 132/76
[2017-11-21 21:10] VITALS: BP 118/73
[2017-11-22 00:30] VITALS: BP 122/75
[2017-11-22 04:54] VITALS: BP 121/69
[2017-11-22 05:16] LABS: HEMATOCRIT 33.1 % (37.0-47.0); HEMOGLOBIN 10.6 gm/dL (12.0-15.0); MCH 24.5 pg (26.0-34.0); MCHC 32.1 g/dL (28.0-37.0); MCV 76.4 fL (80.0-100.0); RBC 4.33 mil/uL (4.20-5.00); RDW 15.3 % (10.5-14.5); WBC 5.1 thou/uL (4.0-11.0)
[2017-11-22 05:22] LABS: CALCIUM 8.5 mg/dL (8.5-10.1); CREATININE 0.7 mg/dL (0.6-1.0)
[2017-11-22 05:25] LABS: POTASSIUM 3.4 mmol/L (3.5-5.1)
[2017-11-22 07:28] VITALS: BP 102/59
[2017-11-22 11:46] VITALS: BP 93/49
[2017-11-22 15:37] VITALS: BP 114/60
[2017-11-22 19:08] VITALS: BP 103/63
[2017-11-23 04:05] VITALS: BP 109/70
[2017-11-23 07:30] VITALS: BP 105/64
[2017-11-23] MEDS ORDERED: CLEOCIN HCL150 MG PO (10:16)
[2017-11-23] MEDS ORDERED: PERCOCET PO (10:17)
[2017-11-23] MEDS ORDERED: TRIAMCINOLONE 080 G3 TOP (10:17)
[2017-11-23 10:34] VITALS: BP 105/64
== END 2017-11-23 15:00 | disposition home or self-care (01) | DRG 638 ==
LOC: ER 16:48 → EROBS 19:55 → 3W 19:55
PROVIDERS: Hospitalist; Nurse Practitioner Family; Physician Assistant
DX: E11.65 Type 2 diabetes mellitus with hyperglycemia (principal); L03.116 Cellulitis of left lower limb; E87.1 Hypo-osmolality and hyponatremia; F41.9 Anxiety disorder, unspecified; Z86.14 Personal history of Methicillin resistant Staphylococcus aureus infection; Z86.018 Personal history of other benign neoplasm; Z98.891 History of uterine scar from previous surgery; Z90.49 Acquired absence of other specified parts of digestive tract; Z90.79 Acquired absence of other genital organ(s); Z90.721 Acquired absence of ovaries, unilateral; Z89.012 Acquired absence of left thumb; Z79.4 Long term (current) use of insulin; Z79.899 Other long term (current) drug therapy; Z88.0 Allergy status to penicillin; Z88.8 Allergy status to other drugs, medicaments and biological substances
CPT/HCPCS: 10879; 27000

== ENCOUNTER 2018-01-30 13:26 | Inpatient (IN) | payer OTHER ==
[~2018-01-30] VITALS: Ht 170.2 cm; Wt 91.6 kg
[~2018-01-30 13:26] MED LIST changes: +TRIAMCINOLONE 080 G3 TOP
[2018-01-30 13:27] VITALS: BP 164/89
[2018-01-30 13:41] LABS: URINE BILIRUBIN NEGATIVE (Negative); URINE BLOOD 3+ (Negative); URINE CLARITY CLEAR; URINE COLOR YELLOW; URINE GLUCOSE-RANDOM* 3+ (Negative); URINE KETONES NEGATIVE (Negative); URINE PROTEIN (DIPSTICK) NEGATIVE (Negative); URINE SPECIFIC GRAVITY <= 1.005 (1.005-1.035); URINE UROBILINOGEN 0.2 E.U./dl (0.2-1.0)
[2018-01-30 13:43] LABS: URINE LEUKOCYTES-REFLEX 1+ (Negative); URINE NITRITE-REFLEX POSITIVE (Negative)
[2018-01-30 13:51] LABS: SQUAMOUS 0-3 Few /LPF (0-3)
[2018-01-30 13:52] LABS: CASTS None Seen /LPF (None Seen); CRYSTALS None Seen /LPF (None Seen); URINE RBC >20 Many /HPF (0-2); URINE WBC-REFLEX >25 Many /HPF (0-5); WBC CLUMPS Moderate (None Seen)
[2018-01-30 14:14] LABS: ABSOLUTE NEUTROPHILS 4.1 thou/uL (1.4-8.2); BASOPHILS 0.5 % (0.0-2.0); HEMATOCRIT 36.2 % (37.0-47.0); HEMOGLOBIN 11.5 gm/dL (12.0-15.0); LYMPHOCYTES 27.1 % (24.0-44.0); MCH 25.9 pg (26.0-34.0); MCHC 31.8 g/dL (28.0-37.0); MCV 81.3 fL (80.0-100.0); MONOCYTES 6.4 % (1.0-8.0); PLATELET COUNT 181 thou/uL (150-400); RBC 4.45 mil/uL (4.20-5.00); RDW 19.3 % (10.5-14.5); WBC 6.4 thou/uL (4.0-11.0)
[2018-01-30 14:35] LABS: CALCIUM 9.3 mg/dL (8.5-10.1); POTASSIUM 4.2 mmol/L (3.5-5.1)
[2018-01-30 15:03] LABS: ANISOCYTOSIS 2+
[2018-01-30 16:36] VITALS: BP 137/77
[2018-01-30 16:59] VITALS: BP 124/74; BP 127/80
[2018-01-30 17:10] VITALS: BP 126/67
[2018-01-30 20:06] VITALS: BP 131/78
[2018-01-31 04:03] VITALS: BP 143/94
[2018-01-31 07:15] VITALS: BP 132/96
[2018-01-31 08:36] LABS: HEMATOCRIT 33.6 % (37.0-47.0); MCHC 32.9 g/dL (28.0-37.0); RBC 4.25 mil/uL (4.20-5.00); RDW 19.2 % (10.5-14.5); WBC 7.5 thou/uL (4.0-11.0)
[2018-01-31 08:42] LABS: CALCIUM 8.8 mg/dL (8.5-10.1); CREATININE 0.6 mg/dL (0.6-1.0); POTASSIUM 3.6 mmol/L (3.5-5.1)
[2018-01-31 17:51] VITALS: BP 114/89
[2018-01-31 19:24] VITALS: BP 113/76
[2018-02-01 03:42] LABS: CALCIUM 8.3 mg/dL (8.5-10.1); CREATININE 0.7 mg/dL (0.6-1.0); POTASSIUM 3.6 mmol/L (3.5-5.1)
[2018-02-01 04:11] VITALS: BP 119/65
[2018-02-01 07:40] VITALS: BP 143/84
[2018-02-01 17:40] VITALS: BP 100/59
[2018-02-01 20:30] VITALS: BP 104/61
[2018-02-02 05:38] VITALS: BP 107/61
[2018-02-02 08:35] VITALS: BP 114/72
[2018-02-02 15:45] VITALS: BP 109/63
[2018-02-02 20:35] VITALS: BP 119/77
[2018-02-03 03:16] VITALS: BP 128/82
[2018-02-03 08:05] VITALS: BP 121/81
[2018-02-03 16:48] VITALS: BP 117/74
[2018-02-03 20:10] VITALS: BP 91/57
[2018-02-04 04:34] VITALS: BP 116/67
[2018-02-04 05:48] LABS: ABSOLUTE NEUTROPHILS 3.5 thou/uL (1.4-8.2); BASOPHILS 0.6 % (0.0-2.0); EOSINOPHILS 1.7 % (0.0-3.0); HEMATOCRIT 34.7 % (37.0-47.0); HEMOGLOBIN 11.2 gm/dL (12.0-15.0); LYMPHOCYTES 21.6 % (24.0-44.0); MCH 25.9 pg (26.0-34.0); MCHC 32.2 g/dL (28.0-37.0); MCV 80.3 fL (80.0-100.0); PLATELET COUNT 221 thou/uL (150-400); POLYS 70.1 % (36.0-66.0); RBC 4.32 mil/uL (4.20-5.00); RDW 20.1 % (10.5-14.5)
[2018-02-04 06:01] LABS: CALCIUM 8.8 mg/dL (8.5-10.1); CREATININE 0.8 mg/dL (0.6-1.0); POTASSIUM 4.4 mmol/L (3.5-5.1)
[2018-02-04 08:00] VITALS: BP 127/103
[2018-02-04] MEDS ORDERED: TRAMADOL 50 MG50 MG PO (09:23)
[2018-02-04] MEDS ORDERED: BACTRIM DS TAB1 EACH PO (09:23)
[2018-02-04] MEDS ORDERED: DIFLUCAN200 MG PO (09:23)
[2018-02-04 11:08] VITALS: BP 127/103
[2018-02-04 13:39] VITALS: BP 127/103
== END 2018-02-04 13:45 | disposition home or self-care (01) | DRG 871 ==
LOC: ER 13:26 → EROBS 15:06 → 4W 15:06
PROVIDERS: Emergency Medicine; Hospitalist
DX: A41.9 Sepsis, unspecified organism (principal); E43 Unspecified severe protein-calorie malnutrition; N39.0 Urinary tract infection, site not specified; E11.65 Type 2 diabetes mellitus with hyperglycemia; E86.0 Dehydration; F41.9 Anxiety disorder, unspecified; R65.20 Severe sepsis without septic shock; B96.20 Unspecified Escherichia coli [E. coli] as the cause of diseases classified elsewhere; Z90.721 Acquired absence of ovaries, unilateral; R33.9 Retention of urine, unspecified; Z16.39 Resistance to other specified antimicrobial drug; Z88.0 Allergy status to penicillin; Z88.5 Allergy status to narcotic agent; Z88.1 Allergy status to other antibiotic agents; Z88.8 Allergy status to other drugs, medicaments and biological substances; Z90.49 Acquired absence of other specified parts of digestive tract; Z98.891 History of uterine scar from previous surgery; Z79.899 Other long term (current) drug therapy; Z86.14 Personal history of Methicillin resistant Staphylococcus aureus infection; Z79.4 Long term (current) use of insulin; Z68.31 Body mass index [BMI] 31.0-31.9, adult
CPT/HCPCS: 10045; 10047

== ENCOUNTER 2018-02-13 18:05 | Emergency (ER) | payer OTHER ==
[~2018-02-13] VITALS: Ht 170.2 cm; Wt 93.0 kg
[2018-02-13 18:57] LABS: BE(vivo) -5.1 mmol/L (-2 to +3); HCO3 21.1 mmol/L (22.0-26.0); PCO2 VENOUS 43.5 mmHg (41.0-51.0); PO2 VENOUS 39.2 mmHg (35.0-45.0)
[2018-02-13 19:02] LABS: HEMATOCRIT 37.9 % (37.0-47.0); HEMOGLOBIN 12.6 gm/dL (12.0-15.0); MCH 26.4 pg (26.0-34.0); MCHC 33.2 g/dL (28.0-37.0); MCV 79.6 fL (80.0-100.0); RBC 4.76 mil/uL (4.20-5.00); RDW 18.2 % (10.5-14.5); WBC 5.6 thou/uL (4.0-11.0)
[2018-02-13 19:02] LABS: URINE BILIRUBIN NEGATIVE (Negative); URINE BLOOD 2+ (Negative); URINE CLARITY CLEAR; URINE COLOR YELLOW; URINE GLUCOSE-RANDOM* 3+ (Negative); URINE KETONES NEGATIVE (Negative); URINE LEUKOCYTES-REFLEX NEGATIVE (Negative); URINE NITRITE-REFLEX NEGATIVE (Negative); URINE PROTEIN (DIPSTICK) NEGATIVE (Negative); URINE SPECIFIC GRAVITY < 1.005 (1.005-1.035); URINE UROBILINOGEN 0.2 E.U./dl (0.2-1.0)
[2018-02-13 19:10] LABS: CALCIUM 9.2 mg/dL (8.5-10.1); CREATININE 0.8 mg/dL (0.6-1.0)
[2018-02-13 19:12] LABS: ALBUMIN 3.5 g/dL (3.4-5.0); TOTAL BILIRUBIN 0.4 mg/dL (<0.1-1.0); TOTAL PROTEIN 8.3 g/dL (6.4-8.2)
[2018-02-13 19:12] LABS: BACTERIA-REFLEX None Seen /HPF (None Seen); CASTS None Seen /LPF (None Seen); CRYSTALS None Seen /LPF (None Seen); SQUAMOUS 4-10 Moderate /LPF (0-3); URINE WBC-REFLEX 0-5 Rare /HPF (0-5)
--- NOTE | 2018-02-13 22:11 | EKG ---
[address] [place] [address] ELECTROCARDIOGRAM REPORT Name: JO ANN FRIAS [id number] Admission: 02/13/18 Attend Phys: Discharge: Date of : 86 Report #: [id number] THIS REPORT FOR: //name// [facility] ED Test Date: 2018-02-13 Test Time: 18:29:10 Pat Name: JO ANN FRIAS Department: Room: Gender: F Freelance Recruiter: KIARA : 1990 Requested By: Hetal Dooley Order Number: [id number] MD: Garrett Villasenor Measurements Intervals [place] Rate: 112 P: 36 LA: 172 QRS: 143 QRSD: 81 T: 18 QT: 328 QTc: 448 Interpretive Statements Sinus tachycardia Right axis deviation Nonspecific ST-T wave changes Compared to ECG 08/16/2017 20:54:30 Right-axis deviation now present Electronically Signed On 02-13-2018 22:11:39 PIPE LINE GAUGER by Garrett Villasenor [email or web address] <ELECTRONICALLY SIGNED> By: Garrett Villasenor MD 02/13/18 2211 1829 1829 Garrett Villasenor MD /ANTHONY
[2018-02-14 00:28] VITALS: BP 135/75
== END 2018-02-14 00:31 | disposition home or self-care (01) ==
LOC: ER 18:05
PROVIDERS: Student in an Organized Health Care Education/Training Program
DX: E11.65 Type 2 diabetes mellitus with hyperglycemia (principal); R11.2 Nausea with vomiting, unspecified; E11.10 Type 2 diabetes mellitus with ketoacidosis without coma; F41.9 Anxiety disorder, unspecified; Z88.4 Allergy status to anesthetic agent; Z88.8 Allergy status to other drugs, medicaments and biological substances; Z88.0 Allergy status to penicillin; Z98.890 Other specified postprocedural states; Z90.49 Acquired absence of other specified parts of digestive tract; Z79.4 Long term (current) use of insulin

== ENCOUNTER 2018-02-23 17:49 | Emergency (ER) | payer OTHER ==
[~2018-02-23] VITALS: Ht 170.2 cm; Wt 93.4 kg
[2018-02-23 20:22] LABS: ABSOLUTE NEUTROPHILS 3.5 thou/uL (1.4-8.2); BASOPHILS 0.4 % (0.0-2.0); EOSINOPHILS 0.4 % (0.0-3.0); HEMATOCRIT 34.3 % (37.0-47.0); HEMOGLOBIN 11.2 gm/dL (12.0-15.0); LYMPHOCYTES 18.6 % (24.0-44.0); MCHC 32.7 g/dL (28.0-37.0); MCV 79.5 fL (80.0-100.0); MONOCYTES 4.5 % (1.0-8.0); PLATELET COUNT 167 thou/uL (150-400); POLYS 76.1 % (36.0-66.0); RBC 4.32 mil/uL (4.20-5.00); WBC 4.6 thou/uL (4.0-11.0)
[2018-02-23 20:43] LABS: CALCIUM 8.7 mg/dL (8.5-10.1); CREATININE 0.8 mg/dL (0.6-1.0); POTASSIUM 4.4 mmol/L (3.5-5.1)
[2018-02-23 20:48] LABS: URINE BILIRUBIN NEGATIVE (Negative); URINE BLOOD 2+ (Negative); URINE CLARITY CLEAR; URINE COLOR YELLOW; URINE GLUCOSE-RANDOM* 3+ (Negative); URINE KETONES NEGATIVE (Negative); URINE PROTEIN (DIPSTICK) NEGATIVE (Negative); URINE SPECIFIC GRAVITY <= 1.005 (1.005-1.035)
[2018-02-23 20:49] LABS: URINE LEUKOCYTES-REFLEX NEGATIVE (Negative); URINE NITRITE-REFLEX NEGATIVE (Negative); URINE UROBILINOGEN 0.2 E.U./dl (0.2-1.0)
[2018-02-23 20:51] LABS: BACTERIA-REFLEX 1-9 Few /HPF (None Seen); CASTS None Seen /LPF (None Seen); SQUAMOUS 0-3 Few /LPF (0-3); URINE RBC 3-10 Few /HPF (0-2); URINE WBC-REFLEX 6-15 Few /HPF (0-5)
[2018-02-23 20:52] LABS: CRYSTALS None Seen /LPF (None Seen)
[2018-02-23 22:29] VITALS: BP 134/78
== END 2018-02-23 22:29 | disposition home or self-care (01) ==
LOC: ER 17:49
PROVIDERS: Student in an Organized Health Care Education/Training Program
DX: E11.65 Type 2 diabetes mellitus with hyperglycemia (principal); E11.10 Type 2 diabetes mellitus with ketoacidosis without coma; F41.9 Anxiety disorder, unspecified; Z88.8 Allergy status to other drugs, medicaments and biological substances; Z88.4 Allergy status to anesthetic agent; Z88.0 Allergy status to penicillin; Z98.890 Other specified postprocedural states; Z90.49 Acquired absence of other specified parts of digestive tract; Z90.721 Acquired absence of ovaries, unilateral; Z79.4 Long term (current) use of insulin

== ENCOUNTER 2018-03-23 14:18 | Emergency (ER) | payer OTHER ==
[~2018-03-23] VITALS: Ht 170.2 cm; Wt 93.4 kg
[2018-03-23 14:57] LABS: URINE BILIRUBIN NEGATIVE (Negative); URINE BLOOD 3+ (Negative); URINE CLARITY SL CLOUDY; URINE COLOR YELLOW; URINE GLUCOSE-RANDOM* 3+ (Negative); URINE KETONES NEGATIVE (Negative); URINE LEUKOCYTES-REFLEX NEGATIVE (Negative); URINE NITRITE-REFLEX NEGATIVE (Negative); URINE PROTEIN (DIPSTICK) NEGATIVE (Negative); URINE SPECIFIC GRAVITY <= 1.005 (1.005-1.035); URINE UROBILINOGEN 0.2 E.U./dl (0.2-1.0)
[2018-03-23 15:03] LABS: BACTERIA-REFLEX None Seen /HPF (None Seen); CASTS None Seen /LPF (None Seen); CRYSTALS None Seen /LPF (None Seen); SQUAMOUS 0-3 Few /LPF (0-3); URINE RBC >20 Many /HPF (0-2); URINE WBC-REFLEX 0-5 Rare /HPF (0-5)
[2018-03-23 15:22] LABS: ABSOLUTE NEUTROPHILS 2.4 thou/uL (1.4-8.2); BASOPHILS 0.6 % (0.0-2.0); EOSINOPHILS 1.1 % (0.0-3.0); HEMATOCRIT 33.8 % (37.0-47.0); HEMOGLOBIN 10.9 gm/dL (12.0-15.0); MCH 25.4 pg (26.0-34.0); MCHC 32.3 g/dL (28.0-37.0); MCV 78.7 fL (80.0-100.0); PLATELET COUNT 230 thou/uL (150-400); POLYS 52.3 % (36.0-66.0); RDW 16.4 % (10.5-14.5); WBC 4.6 thou/uL (4.0-11.0)
[2018-03-23 15:33] LABS: BE(vivo) -4.3 mmol/L (-2 to +3); HCO3 21.4 mmol/L (22.0-26.0); PCO2 VENOUS 41.5 mmHg (41.0-51.0); PO2 VENOUS 42.8 mmHg (35.0-45.0)
[2018-03-23 15:35] LABS: CALCIUM 8.9 mg/dL (8.5-10.1); CREATININE 0.9 mg/dL (0.6-1.0); POTASSIUM 4.3 mmol/L (3.5-5.1)
[2018-03-23 15:38] LABS: ALBUMIN 3.2 g/dL (3.4-5.0); TOTAL BILIRUBIN 0.3 mg/dL (<0.1-1.0); TOTAL PROTEIN 7.5 g/dL (6.4-8.2)
[2018-03-23 18:55] VITALS: BP 95/62
[2018-03-23] MEDS ORDERED: ULTRAM 50MG TAB50 MG PO (18:58)
[2018-03-23] MEDS ORDERED: BACTROBAN CREAM30 G1 TOP (18:58)
== END 2018-03-23 19:13 | disposition home or self-care (01) ==
LOC: ER 14:18
PROVIDERS: Physician Assistant
DX: R10.12 Left upper quadrant pain (principal); E86.0 Dehydration; R11.2 Nausea with vomiting, unspecified; E11.65 Type 2 diabetes mellitus with hyperglycemia; F41.9 Anxiety disorder, unspecified; Z90.49 Acquired absence of other specified parts of digestive tract; Z90.721 Acquired absence of ovaries, unilateral; Z88.0 Allergy status to penicillin; Z88.5 Allergy status to narcotic agent; Z88.1 Allergy status to other antibiotic agents; Z88.8 Allergy status to other drugs, medicaments and biological substances

== ENCOUNTER 2018-05-10 16:19 | Inpatient (IN) | payer OTHER ==
[~2018-05-10] VITALS: Ht 170.2 cm; Wt 96.2 kg
[~2018-05-10 16:19] MED LIST changes: +BACTROBAN CREAM30 G1 TOP; +ULTRAM 50MG TAB50 MG PO
[2018-05-10 16:54] LABS: URINE BILIRUBIN NEGATIVE (Negative); URINE BLOOD 3+ (Negative); URINE CLARITY CLEAR; URINE COLOR YELLOW; URINE GLUCOSE-RANDOM* 3+ (Negative); URINE KETONES NEGATIVE (Negative); URINE LEUKOCYTES NEGATIVE (Negative); URINE NITRITE POSITIVE (Negative); URINE PROTEIN (DIPSTICK) NEGATIVE (Negative); URINE SPECIFIC GRAVITY <= 1.005 (1.005-1.035); URINE UROBILINOGEN 0.2 E.U./dl (0.2-1.0)
[2018-05-10 16:58] VITALS: BP 119/73
[2018-05-10 17:02] LABS: BACTERIA 1-9 Few /HPF (None Seen); SQUAMOUS 4-10 Moderate /LPF (0-3); URINE RBC >20 Many /HPF (0-2); URINE WBC None Seen /HPF (0-5)
[2018-05-10 17:03] LABS: CASTS None Seen /LPF (None Seen); CRYSTALS None Seen /LPF (None Seen)
[2018-05-10 17:19] LABS: ABSOLUTE NEUTROPHILS 2.5 thou/uL (1.4-8.2); BASOPHILS 0.4 % (0.0-2.0); EOSINOPHILS 0.7 % (0.0-3.0); HEMATOCRIT 33.8 % (37.0-47.0); HEMOGLOBIN 10.7 gm/dL (12.0-15.0); LYMPHOCYTES 33.5 % (24.0-44.0); MCH 24.6 pg (26.0-34.0); MCHC 31.6 g/dL (28.0-37.0); MCV 77.9 fL (80.0-100.0); MONOCYTES 8.3 % (1.0-8.0); PLATELET COUNT 227 thou/uL (150-400); POLYS 57.1 % (36.0-66.0); RBC 4.34 mil/uL (4.20-5.00); RDW 17.4 % (10.5-14.5); WBC 4.3 thou/uL (4.0-11.0)
[2018-05-10 17:34] LABS: CALCIUM 8.6 mg/dL (8.5-10.1); CREATININE 0.8 mg/dL (0.6-1.0)
[2018-05-10 17:40] LABS: TOTAL BILIRUBIN 0.3 mg/dL (<0.1-1.0); TOTAL PROTEIN 7.5 g/dL (6.4-8.2)
[2018-05-10 20:20] VITALS: BP 132/47
[2018-05-10 20:28] VITALS: BP 124/70
[2018-05-11 04:03] VITALS: BP 122/79
--- NOTE | 2018-05-11 04:14 | NUR ---
PT ARRIVED FROM ED APPROXIMATELY 2129. PT ALERT AND ORIENTED. ADMISSION COMPLETED. ISOLATION PRECAUTIONS IMPLMENTED. PT ORIENTED TO ROOM, DISSCUSSED EXPECTED PLAN OF CARE. PT COMPLAINS OF PAIN, N/V, SEE EMAR. PT FAMILY AT BEDSIDE. PORTACATH DRESSING C/D/I AND WORKING. WILL CONTINUE POC UNTIL EOS.
[2018-05-11 07:55] LABS: CALCIUM 8.7 mg/dL (8.5-10.1); CREATININE 0.5 mg/dL (0.6-1.0); POTASSIUM 3.7 mmol/L (3.5-5.1)
[2018-05-11 09:54] VITALS: BP 127/82
--- NOTE | 2018-05-11 14:40 | NUR ---
Assessment completed.vss.Pt in and out of bed to bathroom.C/o abdominal pain. Morphinr ivp given as ordered with relief.P t requested for tramadol. none available per emar.Dr Vee notified,order noted.Later this afternoon,pt wanted regular diet AND Chocolate pudding.diesel service apprentice notified and was given.No further c/o. Will continue to monitor.
[2018-05-11 16:48] VITALS: BP 124/75
[2018-05-11 19:41] VITALS: BP 137/64
[2018-05-12 05:54] VITALS: BP 102/54
[2018-05-12 08:04] VITALS: BP 118/66
--- NOTE | 2018-05-12 08:44 | NUR ---
PT AMBULATING IN ROOM INDEPENDENTLY AND IS TOLERATING WELL. TRAMADOL PROVIDING PAIN RELIEF. POSSIBLE DISCHARGE HOME 05/12. RESTING COMFORTABLY. NO NEEDS VOICED. CALL LIGHT WITHIN REACH. WILL CONTINUE TO PROVIDE FREQUENT OBSERVATION.
--- NOTE | 2018-05-12 11:24 | NUR ---
Assumed pt care at 7am.Pt in bed very sleepy but arousable.cable installation technician called this rn and said pt refused test scheduled for this am.When rn went into pt pt to inquire about the report,pt was very upset and acting like she wanted to jump out of bed.She said she's done with any furhter test.Dr Vee notified.He rounded on pt and let the pt knows that the test has to be done. She agreed and network technology instructor paged.Scheduled meds given but pt refused some. Dr Fajardo here,he will return in one hour to see pt.Will continue to monitor.
[2018-05-12 19:50] VITALS: BP 102/58
--- NOTE | 2018-05-13 01:46 | NUR ---
PT C/O PAIN ON HER BACK AND L FLANK,MANAGED WITH PO MED.PT DENIED N/V/D SO FAR.CONT ON IV ABX AND IVF.BOYFRIEND AT BEDSIDE.PT REQUESTED SOME LUNCH BOXES,OFFERED TO PT.R CHEST PORTHA CATH IN PLACE.BG MONITORED ORDERED. ISOLATION PRECAUTION FOR PRESUMPTIVE CDIFF IN PLACE.PT RESTING ON HER BED AT THIS TIME.CALL LIGHT WITHIN REACH.
[2018-05-13 05:05] VITALS: BP 96/57
[2018-05-13 07:50] VITALS: BP 113/61
--- NOTE | 2018-05-13 12:15 | NUR ---
Assess due to high nutrition screening risk for unintentional wt loss. Admitted with N/v, recurrent UTI, possible gastroenteritis. Hx diabetes poor controlled, however hospital glucose levels better 118-146, requires insulin. Pt sleeping. S/O states some wt loss, used to weight closer to 210 lb, now under 200 lb with rings fitting more loosely. Variable intake, but ate better this am. Possible discharge today. Low nutrition risk
[2018-05-13] MEDS ORDERED: MACROBID 100 M100 M2 PO (14:56)
[2018-05-13] MEDS ORDERED: PROBIOTIC1 EAC1 PO (14:56)
[2018-05-13] MEDS ORDERED: FLOMAX0.4 MG PO (14:57)
[2018-05-13 15:38] VITALS: BP 113/61
--- NOTE | 2018-05-13 20:26 | NUR ---
ASSUMED CARE THIS AM, SHIFT ASSESSMENT DONE, VSS. REFUSED BOTH SHORT AND LONG ACTING INSULIN EARLY THIS AM WELL REFUSED PEPCID. WANTED TO SLEEP SHE DID NOT SLEEP LAST NIGHT. REPORTED PAIN, PRN TORADOL GIVEN. TOK LONG ACTING INSULIN AT 1200. DR DAI GAVE ORDER FOR A POST VOID RESIDUAL. PATIENT INDICATED SHE WAS NOT DRINKING AND HAS NOT GONE TO THE BATHROOM SINCE THIS AM. BLADDER SCAN DONE AT 1300, MORE THAN 1000 ML OF URINE RETAINED. PATEINT REFUSED TO BE RECEIVE STRAIGHT CATHETERIZATION. ASKED TO VOID, WAS ABLE TO VOID 750 ML OF URINE. DENIES POST VOID BLADDER SCAN. DR DAI INFORMED OF THE RESULT. ORDER RECEIVED FOR DISCHARGE. PROT-D-CATH WAS DEACCESED WITH HEPARIN FLUSH. DISCHARGE PAPER WORK ALONG WITH SCRIPTS WERE GIVEN. PATIENT LEFT WITH FAMILY.
== END 2018-05-13 16:34 | disposition home or self-care (01) | DRG 689 ==
LOC: ER 16:19 → 4E 19:14 → EROBS 19:14 → 4E 20:32
PROVIDERS: Nurse Practitioner Family; Student in an Organized Health Care Education/Training Program; ADMIT Hospitalist
DX: N39.0 Urinary tract infection, site not specified (principal); E11.10 Type 2 diabetes mellitus with ketoacidosis without coma; M86.9 Osteomyelitis, unspecified; F41.9 Anxiety disorder, unspecified; B96.20 Unspecified Escherichia coli [E. coli] as the cause of diseases classified elsewhere; E11.65 Type 2 diabetes mellitus with hyperglycemia; E11.69 Type 2 diabetes mellitus with other specified complication; Z98.891 History of uterine scar from previous surgery; Z86.14 Personal history of Methicillin resistant Staphylococcus aureus infection; Z90.49 Acquired absence of other specified parts of digestive tract; Z90.721 Acquired absence of ovaries, unilateral; Z89.012 Acquired absence of left thumb; Z79.4 Long term (current) use of insulin; Z79.899 Other long term (current) drug therapy; Z88.0 Allergy status to penicillin; Z88.8 Allergy status to other drugs, medicaments and biological substances; Z82.49 Family history of ischemic heart disease and other diseases of the circulatory system; Z83.3 Family history of diabetes mellitus
CPT/HCPCS: 10084

== ENCOUNTER 2018-06-09 20:05 | Inpatient (IN) | payer OTHER ==
[~2018-06-09] VITALS: Ht 170.2 cm; Wt 90.7 kg
[~2018-06-09 20:05] MED LIST changes: +FLOMAX0.4 MG PO; +MACROBID 100 M100 M2 PO; +PROBIOTIC1 EAC1 PO
[2018-06-09 20:06] VITALS: BP 146/87
[2018-06-09] MEDS ORDERED: VALIUM5 MG PO (20:29)
[2018-06-09 20:39] LABS: URINE BILIRUBIN NEGATIVE (Negative); URINE BLOOD TRACE (Negative); URINE CLARITY CLEAR; URINE COLOR YELLOW; URINE GLUCOSE-RANDOM* 3+ (Negative); URINE KETONES NEGATIVE (Negative); URINE LEUKOCYTES-REFLEX NEGATIVE (Negative); URINE NITRITE-REFLEX NEGATIVE (Negative); URINE PROTEIN (DIPSTICK) NEGATIVE (Negative); URINE SPECIFIC GRAVITY <= 1.005 (1.005-1.035); URINE UROBILINOGEN 0.2 E.U./dl (0.2-1.0)
[2018-06-09 21:20] LABS: ABSOLUTE NEUTROPHILS 2.6 thou/uL (1.4-8.2); BASOPHILS 0.4 % (0.0-2.0); EOSINOPHILS 0.5 % (0.0-3.0); HEMATOCRIT 34.3 % (37.0-47.0); HEMOGLOBIN 10.9 gm/dL (12.0-15.0); LYMPHOCYTES 41.8 % (24.0-44.0); MCH 23.6 pg (26.0-34.0); MCHC 31.7 g/dL (28.0-37.0); MCV 74.3 fL (80.0-100.0); MONOCYTES 7.7 % (1.0-8.0); PLATELET COUNT 258 thou/uL (150-400); POLYS 49.6 % (36.0-66.0); RBC 4.61 mil/uL (4.20-5.00); RDW 16.5 % (10.5-14.5); WBC 5.3 thou/uL (4.0-11.0)
[2018-06-09 21:28] LABS: ALBUMIN 3.1 g/dL (3.4-5.0); CALCIUM 9.4 mg/dL (8.5-10.1); CREATININE 0.7 mg/dL (0.6-1.0); DIRECT BILIRUBIN 0.1 mg/dL (<0.1-0.3); POTASSIUM 4.1 mmol/L (3.5-5.1); TOTAL BILIRUBIN 0.4 mg/dL (<0.1-1.0); TOTAL PROTEIN 7.9 g/dL (6.4-8.2)
[2018-06-10 02:36] VITALS: BP 105/69
[2018-06-10 03:22] VITALS: BP 105/59
[2018-06-10 03:43] VITALS: BP 133/71
--- NOTE | 2018-06-10 04:46 | NUR ---
PATIENT AAOX3, ANXIOUS, ARRIVED FROM ER C/O ABDOMINAL PAIN AND NAUSEA. REQUESTING PHENERGAN AND PAIN MEDICATION. MORPHINE AND ZOFRAN GIVEN.
[2018-06-10 07:14] VITALS: BP 98/75
[2018-06-10 09:45] LABS: CALCIUM 8.9 mg/dL (8.5-10.1); CREATININE 0.6 mg/dL (0.6-1.0); MAGNESIUM 1.4 mg/dL (1.8-2.4); POTASSIUM 4.1 mmol/L (3.5-5.1)
--- NOTE | 2018-06-10 12:15 | NUR ---
chart review, discussed during los possible a day. cm spoke with pt and she raised her voice " no ones told me that"/kayla. education that it is estimated time of stay, of when dr think a patient might be ready. in soft whisper " ok thank you"/pt. pt spouse resting in recliner with blankets pulled over his head. intro to cm and safe net packet provided for resources outside the hospital. " [facility] to see dr and get medication. use my grandpa wheel chair only when not feeling well or in pain. our truck broken down in [place] and we take the bus and live with family."/kayla. noted pt rocking back and forth while sitting up in bed. no co pain or concerned voice " need some ice water"/pt. wicker worker assisting with ice water. dcp home
[2018-06-10 14:00] VITALS: BP 122/74
--- NOTE | 2018-06-10 17:48 | NUR ---
ASSUMED CARE 0700. VSS, BLOOD SUGAR STABALIZING THROUGH SHIFT. NOT INTERESTED IN EATING. HOLDING DINNER INSULIN. PAIN MANAGED WITH MEDICATIONS. COMPLIANT WITH CARES. CALLS FOR ASSISTANCE. CALL LIGHT IN REACH.
[2018-06-10 18:58] VITALS: BP 128/76
[2018-06-10 22:10] LABS: GLYCOHEMOGLOBIN (HGB A1C) 7.9 % (4.8-5.6)
[2018-06-11 04:10] VITALS: BP 132/71
--- NOTE | 2018-06-11 05:07 | NUR ---
ASSUMED CARE AROUND 1900. AXOX4. CALLS APPROPRIATELY. PERSISTENT NAUSEA WITHOUT VOMITING AND ABD PAIN. TX PER MD ORDER. ON ISOLATION FOR MRSA. NO S/S ACUTE DISTRESS NOTED OR REPORTED AT THIS TIME. WILL CONT TO MONITOR ANY CHANGES IN CONDITION.
[2018-06-11 08:50] VITALS: BP 105/67
[2018-06-11] MEDS ORDERED: REGLAN 10 MG TA10 MG PO (10:08)
[2018-06-11] MEDS ORDERED: OXYCODONE HCL 55 MG PO (10:08)
[2018-06-11] MEDS ORDERED: LEVAQUIN 500 M500 M2 PO (10:14)
[2018-06-11 11:01] VITALS: BP 105/67
== END 2018-06-11 13:55 | disposition home or self-care (01) | DRG 73 ==
LOC: ER 20:05 → EROBS 06-10 01:53 → 4W 06-10 01:53
PROVIDERS: Emergency Medicine; Nurse Practitioner Acute Care; ADMIT Hospitalist
DX: E10.43 Type 1 diabetes mellitus with diabetic autonomic (poly)neuropathy (principal); J69.0 Pneumonitis due to inhalation of food and vomit; F41.9 Anxiety disorder, unspecified; E10.65 Type 1 diabetes mellitus with hyperglycemia; R16.1 Splenomegaly, not elsewhere classified; K31.84 Gastroparesis; Z79.899 Other long term (current) drug therapy; Z88.1 Allergy status to other antibiotic agents; Z88.5 Allergy status to narcotic agent; Z88.8 Allergy status to other drugs, medicaments and biological substances; Z88.0 Allergy status to penicillin; Z90.49 Acquired absence of other specified parts of digestive tract; Z98.891 History of uterine scar from previous surgery; Z79.4 Long term (current) use of insulin; Z82.49 Family history of ischemic heart disease and other diseases of the circulatory system; Z80.3 Family history of malignant neoplasm of breast; Z83.3 Family history of diabetes mellitus
CPT/HCPCS: 10040

== ENCOUNTER 2018-06-29 10:10 | Inpatient (IN) | payer OTHER ==
[~2018-06-29] VITALS: Ht 170.2 cm; Wt 93.0 kg
--- NOTE | ~2018-06-29 | HC ---
[facility] [place] [address] CONSULTATION Name: JO ANN FRIAS Room #: 350-P ADM IN M.R.#: [id number] Admission: 06/29/18 ������������������ Attend Phys: Chip Day MD Discharge: ������������������ Date of : 86 Report #: [id number] THIS REPORT FOR: //name// CC: JOSÉ physician/PCP Chip Day DATE OF SERVICE: 06/30/2018 CONSULTATION: Infectious diseases. HISTORY OF PRESENT ILLNESS: The patient is a 27-year-old white female who comes to the ER complaining of severe left upper quadrant pain doubling her over. This was associated with nausea, vomiting. The patient states that she was having fever. She has had similar admissions in the past and has been diagnosed with gastroparesis. Of note, during this admission, the patient had a glucose of about 700 without acidosis. The patient has a past history of diabetes, anxiety, attention deficit hyperactivity disorder. 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 PAST SURGICAL HISTORY: Includes appendectomy, cholecystectomy, section, and right oophorectomy for torsion. She has had a hernia repair. ALLERGIES: The patient's chart notes allergy to PENICILLIN, which is described as anaphylaxis; DOXYCYCLINE, which is described as severe, but otherwise characterized; FENTANYL, characterized as severe - hives and NORCO, severe - nausea and vomiting. SOCIAL HISTORY: The patient is single. She has a fiance. She is disabled by her multiple medical problems. She denies use of tobacco, alcohol or drugs. REVIEW OF SYSTEMS: GENERAL: The patient says she has measured her temperature as high as 101.7. The computer documentation shows maximum temperature 101.0. This is associated with chills, sweats, malaise. She says she has had a gradual 30-pound weight loss over the last 1 year. The patient denies any headache, sinus congestion, cognitive dysfunction, sore throat, trouble swallowing. The patient denies cough or chest pain. She does get some shortness of breath, particularly with high temperature. The patient complains of nausea, vomiting without hematemesis. She has diarrhea without any melena nor hematochezia. The patient denies any urinary symptoms. She says that she has always been able to hold a lot of urine. She attributes this to as the child driving to [place] and the mother not wanting to use public bathrooms and making the children hold their bladder for 12 hours. Of note, in April of this year, there was a sonogram, which demonstrated urine volume of 740 mL and a postvoid residual of [address] [address] CONSULTATION Name: JO ANN FRIAS Room #: 350-P [facility] IN M.R.#: [id number] Admission: 06/29/18 ������������������ Attend Phys: Chip Day MD Discharge: ������������������ Date of : 86 Report #: [id number] The patient denies problems with her arms or legs. PHYSICAL EXAMINATION: GENERAL: The patient appears her stated age, heavily tattooed, somewhat depressed in affect, but not in any distress. She notes that she feels much more comfortable with the temperature down. SKIN: The patient has no wounds, lesions, cellulitis or drainage. ENT: Negative. Cognitive function is grossly normal. NECK: No adenopathy could be appreciated. HEART: Sounds S1, S2. LUNGS: Clear. The patient has a port in the right chest, which is accessed and appears unremarkable. ABDOMEN: The belly is obese, soft and not particularly tender. I cannot appreciate any organomegaly. VITAL SIGNS: The patient was weighed at 205 pounds. LABORATORY DATA: White count is 3.9, hemoglobin 8.7, platelets 548620. The MCV is 73. The electrolytes normal. The patient was an acidotic with bicarbonate of 22. Her glucose on admission was measured at 619 and then came down to 164. Her alkaline phosphatase is elevated at 460 with normal SGOT and SGPT. Urine drug screen negative. The patient says blood and urine cultures were obtained. I do not see a urinalysis. IMAGING DATA: The radiology department reports the chest x-ray showed basal atelectasis or infiltrates, but a CT of the abdomen showed clear lungs. The spleen was measured at 16 cm. A sonogram in April showed the spleen at [address] scan demonstrated significant bladder distention with the bladder extending from the pelvis into the abdominal cavity. At this time, the patient has a number of problems. She was grossly hyperglycemic, but this responded very quickly. She has documented hepatosplenomegaly of unknown etiology. This is associated with an elevated alkaline phosphatase. She has urinary retention with enlarged bladder with remarkably few symptoms. At this time, I am not impressed that we are dealing with urinary tract infection. Dr. Thrasher' consult, he mentioned the possibility of Munchausen syndrome at least 3 times. However, we would not expect Munchausen's to cause hepatosplenomegaly, urinary retention, elevated alkaline phosphatase, and microcytic anemia. I suspect there is something more going on here. I would like to stop the antibiotics and antifungal. I would like to check studies for CMV mononucleosis, HIV and histoplasmosis. We will check inflammatory markers including sedimentation rate and CRP. We will initiate anemia workup, checking reticulocyte counts, iron, iron binding and TSH. It may be helpful to obtain records from [facility] where the patient has had [facility] [address] [place] [address] CONSULTATION Name: JO ANN FRIAS Room #: 350-P ADM IN M.R.#: [id number] Admission: 06/29/18 ������������������ Attend Phys: Chip Day MD Discharge: ������������������ Date of : 86 Report #: [id number] previous evaluation. I appreciate the opportunity to work with you in the care of this complex patient. Dr. Phelan will return tomorrow for additional evaluation and followup. For now, we will be off antibiotics and we will do cultures if the patient should have additional fevers. At some point, we may need to resort to a tissue diagnosis. I would think that liver and bone marrow may be useful targets if there are no biopsiable lymph nodes. Thank you again for this consultation. ��������������������������������������������� ���������������������������������������� By: ��������������������������������������������� [id number] Sadiq Tomas MD /mike
[2018-06-29 10:10] VITALS: BP 116/74
[~2018-06-29 10:10] MED LIST changes: +LEVAQUIN 500 M500 M2 PO
[2018-06-29 10:41] LABS: URINE BILIRUBIN NEGATIVE (Negative); URINE BLOOD 3+ (Negative); URINE CLARITY CLEAR; URINE COLOR YELLOW; URINE GLUCOSE-RANDOM* 3+ (Negative); URINE KETONES NEGATIVE (Negative); URINE LEUKOCYTES NEGATIVE (Negative); URINE NITRITE NEGATIVE (Negative); URINE PROTEIN (DIPSTICK) NEGATIVE (Negative); URINE SPECIFIC GRAVITY <= 1.005 (1.005-1.035); URINE UROBILINOGEN 0.2 E.U./dl (0.2-1.0)
[2018-06-29 11:00] LABS: AMP/METHAMP Negative (Negative); BARBITURATES Negative (Negative); BENZODIAZEPINES Negative (Negative); COCAINE Negative (Negative); METHADONE Negative (Negative); OPIATES Negative (Negative); PCP Negative (Negative)
[2018-06-29 11:01] LABS: SQUAMOUS >10 Many /LPF (0-3)
[2018-06-29 11:03] LABS: CRYSTALS None Seen /LPF (None Seen); URINE WBC 6-15 Few /HPF (0-5)
[2018-06-29 11:06] LABS: BACTERIA 1-9 Few /HPF (None Seen)
[2018-06-29 11:07] LABS: CASTS None Seen /LPF (None Seen); YEAST Present (None Seen)
[2018-06-29 11:08] LABS: ABSOLUTE NEUTROPHILS 3.4 thou/uL (1.4-8.2); BASOPHILS 0.8 % (0.0-2.0); EOSINOPHILS 0.5 % (0.0-3.0); HEMATOCRIT 29.9 % (37.0-47.0); HEMOGLOBIN 9.2 gm/dL (12.0-15.0); MCH 23.2 pg (26.0-34.0); MCHC 30.8 g/dL (28.0-37.0); MCV 75.3 fL (80.0-100.0); MONOCYTES 6.2 % (1.0-8.0); PLATELET COUNT 221 thou/uL (150-400); POLYS 73.5 % (36.0-66.0); RBC 3.97 mil/uL (4.20-5.00); RDW 17.7 % (10.5-14.5); WBC 4.6 thou/uL (4.0-11.0)
[2018-06-29 11:21] LABS: CALCIUM 8.2 mg/dL (8.5-10.1); CREATININE 0.9 mg/dL (0.6-1.0); POTASSIUM 4.4 mmol/L (3.5-5.1)
[2018-06-29 11:24] LABS: ALBUMIN 2.9 g/dL (3.4-5.0); DIRECT BILIRUBIN 0.1 mg/dL (<0.1-0.3); TOTAL BILIRUBIN 0.3 mg/dL (<0.1-1.0); TOTAL PROTEIN 7.3 g/dL (6.4-8.2)
[2018-06-29 13:11] VITALS: BP 126/74
--- NOTE | 2018-06-29 13:17 | NUR ---
ATTEMPT TO CALL REPORT, LEFT ON HOLD FOR 7MIN. WILL ATTEMPT AGAIN.
[2018-06-29 13:24] VITALS: BP 133/83
[2018-06-29 13:51] VITALS: BP 125/58
[2018-06-29 16:30] VITALS: BP 143/88
--- NOTE | 2018-06-29 17:26 | NUR ---
PT ARRIVED AT 1350 FROM ER. C/O LUQ PAIN 09/21, OXYCODONE AND MORPHINE ADMINISTERED ORDERED. PT C/O N&V, ZOFRAN ADMINISTERED. HR REMAINED ELEVATED, TEMP 101.0, HOPSITALIST NOTIFIED AND ORDERS RECEIVED. CT SCAN ORDERED, AWAITING RESULTS. PT CONTINUES TO RECEIVE IV NS AT 75ML/HR. UP WITH SBA, VOIDING PER THE COMMODE. Q1H VISUAL CHECKS. CALL LIGHT WITHIN REACH. FALL PRECAUTIONS IN PLACE. BOYFRIEND AT BEDSIDE
[2018-06-29 19:10] VITALS: BP 133/88
[2018-06-30 01:30] VITALS: BP 105/59
[2018-06-30 04:21] VITALS: BP 104/56
[2018-06-30 06:01] LABS: HEMATOCRIT 27.7 % (37.0-47.0); HEMOGLOBIN 8.7 gm/dL (12.0-15.0); MCHC 31.3 g/dL (28.0-37.0); MCV 73.3 fL (80.0-100.0); RBC 3.79 mil/uL (4.20-5.00); RDW 17.4 % (10.5-14.5); WBC 3.9 thou/uL (4.0-11.0)
[2018-06-30 06:24] LABS: CALCIUM 8.3 mg/dL (8.5-10.1); CREATININE 0.6 mg/dL (0.6-1.0); POTASSIUM 3.5 mmol/L (3.5-5.1)
--- NOTE | 2018-06-30 06:35 | NUR ---
PATIENT IS PROGRESSING SLOWLY IN HER CARE PLAN. VITAL SIGNS MOSTLY STABLE WITH TACHYCARDIA AND FEVER NOTED AND TREATED EFFECTIVELY. PATIENT RECEIVED EFFECTIVE TREATMENT FOR FREQUENT COMPLAINTS OF PAIN AND NAUSEA. PATIENT STARTED ON 2L NC DUE TO OXYGEN SATS IN 80'S ON SPOT CHECK. SUBSEQUENTLY SATS IN HIGH 90'S. CONTINUE PLAN OF CARE.
[2018-06-30 07:24] VITALS: BP 99/65
--- NOTE | 2018-06-30 09:22 | NUR ---
HS VISITED PATIENT ON ARRIVAL TO UNIT. PT HAD NOT YET RECIEVED HER ADMISSION PACKET. PT INFORMED OF TELEMETRY POLICY AND UPDATES. HS ALSO SPOKE WITH NURSE TO ENSURE PT WILL RECEIVE ADMISSION PACKET WITH TELEMETRY POLICY LETTER. HÉCTOR FERNANDES AGREES SHE IS GOING IN TO TALK TO HER AT THAT TIME. -06/29/18
[2018-06-30 16:24] VITALS: BP 103/65
--- NOTE | 2018-06-30 17:08 | NUR ---
ASSUMED PATIENT CARE AT 0700. A/O X4. UP STB TO BSC. TITRAED TO RA 02 SAT 95%. STILL C/0 LUQ PAIN 08/21. PAIN MEDS GIVEN NEEDS. LOW GRADE TEMP. WILL KEEP MONIOTR.
[2018-06-30 20:00] VITALS: BP 117/71
[2018-07-01 04:06] VITALS: BP 115/80
--- NOTE | 2018-07-01 04:15 | NUR ---
PT RESTING IN BED. ST ON MONITOR. PT REQUIRED MULTIPLE DOSES OF PAIN MEDICATIONS THROUGHOUT SHIFT. PT PENDING STOOL SAMPLE COLLECTION TO BE SENT TO LAB. PT CONTINUES WITH MAINTENANCE IVFs. PT AM LABS TO BE DRAWN.
[2018-07-01 06:04] LABS: HEMATOCRIT 29.6 % (37.0-47.0); HEMOGLOBIN 9.3 gm/dL (12.0-15.0); MCHC 31.4 g/dL (28.0-37.0); MCV 73.1 fL (80.0-100.0); RBC 4.05 mil/uL (4.20-5.00); RDW 17.4 % (10.5-14.5); WBC 3.8 thou/uL (4.0-11.0)
[2018-07-01 06:05] LABS: ABSOLUTE RETIC COUNT 0.125 10^6/uL; OBSERVED RETIC COUNT 3.14 % (0.6-2.6)
[2018-07-01 06:17] LABS: CALCIUM 8.4 mg/dL (8.5-10.1); CREATININE 0.6 mg/dL (0.6-1.0)
[2018-07-01 06:22] LABS: % SATURATION 5 % (20-39); IRON 18 ug/dL (50-170); TIBC 364 ug/dL (250-450)
[2018-07-01 06:37] LABS: TSH 2.507 uIU/mL (0.358-3.740)
[2018-07-01 07:19] VITALS: BP 143/75
[2018-07-01 11:52] LABS: INR 1.1; PROTIME 11.2 Seconds (9.3-11.4)
[2018-07-01 16:13] VITALS: BP 121/83
--- NOTE | 2018-07-01 18:34 | NUR ---
PT ALERT AND ORIENTED TIMES FOUR. VSS, 99%RA, SR ON TELE, IVF INFUSING PER ORDER. PT C/O ABD PAIN AND REQUESTED SEVERAL DOSES OF PAIN MEDICATIONS THIS SHIFT. PT HAS POOR APPETITE, EATS SMALL POTIONS OF MEALS. PT UP TO BSC WITH STANDBY ASSIST. PT FAMILY AT BEDSIDE WILL COBTINUE TO MONITOR.
[2018-07-01 19:49] VITALS: BP 123/77
--- NOTE | 2018-07-02 03:16 | NUR ---
SLEPT PART OF SHIFT. REQUEST FOR PAIN MEDICATION WHEN DUE WITH NOTED RELIEF. WORKING ON GOALS AND PLAN OF CARE FOR NOC. NO COMPLAINTS OF NAUSEA THIS SHIFT. UP TO BATHROOM WITH STANDBY ASSIST. NOT PROGRESSING TOWARDS DISCHARGE GOALS AT THIS TIME. MAINTAIN SAFE ENVIRONMENT. REMAINS AT BEDSIDE. CONTINUE TO ASSES CLOESLY.
[2018-07-02 04:34] VITALS: BP 111/60
[2018-07-02 05:51] LABS: HEMATOCRIT 28.7 % (37.0-47.0); HEMOGLOBIN 9.1 gm/dL (12.0-15.0); MCH 23.2 pg (26.0-34.0); MCHC 31.7 g/dL (28.0-37.0); RBC 3.93 mil/uL (4.20-5.00); RDW 17.4 % (10.5-14.5); WBC 4.1 thou/uL (4.0-11.0)
[2018-07-02 06:08] LABS: ALBUMIN 2.5 g/dL (3.4-5.0); DIRECT BILIRUBIN < 0.1 mg/dL (<0.1-0.3); SGOT 40 U/L (15-37); SGPT 24 U/L (30-65); TOTAL BILIRUBIN 0.3 mg/dL (<0.1-1.0); TOTAL PROTEIN 6.7 g/dL (6.4-8.2)
[2018-07-02 07:00] VITALS: BP 132/58
[2018-07-02 10:06] LABS: HIV ANTIBODY Non Reactive (Non Reactive)
[2018-07-02 15:30] VITALS: BP 122/88
--- NOTE | 2018-07-02 16:34 | NUR ---
INITIAL ASSESSMENT: SW reviewed chart and spoke with nursing and attending physician. Pt was admitted from home due to hyperglycemia. Pt with hx of DM. Pt does not have health insurance. Pt is alert/orientated x 4. Pt had liver bx and bone marrow bx earlier today. Pt lives at home. Face sheet faxed to [employer]. Pt has been provided with Health Resource guide in the past. Plan is for pt to discharge home when medically stable. [facility] is following to assist as needed with discharge planning.
--- NOTE | 2018-07-02 16:51 | NUR ---
Assumed care of PT at 0700. Pt AOx4 in no acute distress. Denies having stool. enema ordered - pt self administered - says she has done so in the past. refused to have staff assist in BR. reports clear stool. EGD and Colonscopy performed today. DC orders pending. all questions and concerned addressed with patient during discharge teaching. stable for discharge.
[2018-07-02 19:03] VITALS: BP 110/60
--- NOTE | 2018-07-03 04:17 | NUR ---
Medicated for LUQ abd pain with some relief. She stated she slept some. O2 at 1L/NC , no respiratory distress.Cont. on isolation , afebrile. BG at 2046= 69. Apple juice given and BG rechecked =73. Pt. asymptomatic and alert and oriented. She requested 2% milk later on. Insulin held due to low BG. No nausea or vomiting. Instructed NPO after MN for US abdomen this am. Making progress towards care plan goals.
[2018-07-03 05:45] VITALS: BP 111/54
[2018-07-03 07:57] VITALS: BP 100/62
--- NOTE | 2018-07-03 10:36 | NUR ---
SW reviewed chart and spoke with nursing. Pt is NPO for US Abdomen today. Plan is for pt to discharge home when medically stable. [facility] is following to assist as needed with discharge planning.
[2018-07-03 11:14] VITALS: BP 154/60
[2018-07-03 16:24] VITALS: BP 93/55
[2018-07-03 19:25] VITALS: BP 99/62
--- NOTE | 2018-07-03 19:40 | NUR ---
Patient remains on 3L NC. Patient stated she has been breathing fine. Pain management hasn't been great today; Patient has requested her IV and oral pain meds on the hour each time they are due. Nausea/vomiting was reported once. IV Zofran given to treat nausea. Significant other at bedside. Patient making partial progress toward plan of care at this time.
[2018-07-04 03:45] VITALS: BP 112/70
--- NOTE | 2018-07-04 07:45 | NUR ---
ASSUMED CARE OF PT AT 1900. A&Ox4. VS STABLE. CONTINUALLY CALLING FOR PAIN MEDS Q 2 HRS RIGHT WHEN A MED WOULD BE AVAILABLE. DISCUSSED W/ PT CONCERN OF MEDS NOT WORKING WITH POSSIBILITY OF CAUSING A DEPENDENCY AND POSSIBLY COULD TRY NON-MED TX. PT SUDDENLY C/O OF BEING FREEZING, STARTED CRYING AND SHIVERING D/T FEELING COLD. VS, TEMP AND GLUCOSE LEVELS WERE ALL FINE. CURRENTLY RESTING. NO PROGRESSION TOWARDS POC GOALS. PAIN NEVER IMPROVED ON ANY ASSMT.
[2018-07-04 08:44] VITALS: BP 128/62
--- NOTE | 2018-07-04 14:06 | PATH ---
[facility] [address] [place] [address] PATHOLOGY RPT PROCEDURE Name: FABIOLA FRIAS Room #: 350-P ADM IN M.R.#: [id number] ������������������ Admission: 06/29/18 ������������������ Date of : 86 Discharge: Report #: [id number] Path Case #: [id number] [facility] Accession Number: [id number] . 01 Material submitted: . liver - LIVER . 01 Clinical history: . Nausea, vomiting, lower upper quadrant pain, . 02 Diagnosis: Liver, needle core biopsy: - Non-necrotizing granulomatous inflammation present within the portal tracts, periportal areas as well as lobules. - Mild mixed portal chronic inflammation. - Approximately 20% macrovesicular steatosis. - Negative for significant fibrosis. - Kimmy-Donovan grade 1-2/4, stage 1/4. LBQ/07/03/2018 . 02 Comment: Examination shows numerous poorly formed epithelioid granulomata within the lobules, periportal areas as well as within the portal tracts. Ductular proliferation is present. The portal tracts in addition, show mixed portal chronic inflammation comprised of lymphocytes, few plasma cells as well as eosinophils. Sheets of plasma cells are not identified. There is no evidence of hepatocyte letty formation present. Lymphoid aggregates are not present. Florid duct lesions and bile duct atypia are not identified. Sclerosed bile duct lesions are not identified as well. Few portal tracts are devoid of intact bile ducts. In addition, the lobules show approximately 20% macrovesicular steatosis along with glycogenated nuclei. Lipogranulomata, or ballooning of cells are not identified. Granulomas surrounded by a fibrin ring are not present. Caseation or necrosis is not present in association with any of the granulomata. Forgein material or polarizable material is not present within the giant cells. . Special stains are performed on block A1. Trichrome stain shows enlarged protal tracts and mild periportal fibrosis. Perisinusoidal fibrosis or bridging fibrosis are not identified. Reticulin stain shows foci of condensation and the network is lost within the areas with steatosis. PAS with and without Diastase are negative for intracytoplasmic globules in Zone1; show numerous macrophages consistent with injury are identified within the periportal areas. Iron stain is negative. Copper stain shows no evidence of chronic cholestasis. . Acid fast bacillus and Gomori methenamine silver stains performed on block [address] [address] PATHOLOGY RPT PROCEDURE Name: FABIOLA FRIAS Room #: 350-P ADM IN M.R.#: [id number] ������������������ Admission: 06/29/18 ������������������ Date of : 86 Discharge: Report #: [id number] Path Case #: [id number] A1 are negative for mycobacterial as well as fungal elements, respectively. . Based on the presence of granulomatous inflammation within this liver biopsy tissue, the differential diagnosis includes sarcoidosis, various bacterial infections including Q fever, tuberculosis, fungal infections, parasitic organisms, primary biliary cholangitis (stage 3), primary sclerosing cholangitis, chronic gastrointestinal diseases, vasculitides, drug induced liver injury, foreign material including mineral oil, chronic granulomatous disease of childhood, common variable immune deficiency as various possibilities. . The findings are conveyed to Ms. Naima Quintero in the morning of 07/03/18. (IUV/db; 07/03/2018) . 02 Electronically signed: . Natahsa Lin MD, Pathologist NPI- [id number] . 01 Gross description: . The specimen is received in formalin, labeled "Frias, Fabiola, liver biopsy", are two reddy soft needle cores measuring 2.1 cm and 2.0 cm in length with an average 0.1 cm diameter. The specimen is entirely submitted in A1. ([facility]; 07/02/2018) SHS/SHS . 02 Pathologist provided ICD-10: K73.9, K76.0 . 02 CPT . 876430, [id number], 135973, [id number], 125390, 932437, 367033, [id number], [id number] Specimen Comment: A courtesy copy of this report has been sent to Specimen Comment: [phone]. Specimen Comment: Report sent to Performed at: [address], [place] [id number] MD Solomon Manning MD Phone: [phone] Performed at: [address] [id number] MD Natasha Lin MD Phone: [phone]
--- NOTE | 2018-07-04 15:37 | NUR ---
SW reviewed chart and spoke with nursing and attending physician. Pt had US of abdomen this morning. Pt is progressing towards goals for discharge. SW met with pt and s/o at bedside to discuss discharge plan. Pt currenlty on 6L of O2. Pt was not on O2 prior to admission. SW provided pt with Health Resource Guide and prescription discount cards. Pt did not want to accept info. Pt's s/o took info for review. Pt normally goes to [facility] clinic. Plan is for pt to discharge home when medically stable. Will need to evaluate pt for home O2. [facility] is following to assist as needed with discharge planning.
[2018-07-04 16:30] VITALS: BP 117/62
--- NOTE | 2018-07-04 19:06 | PATH ---
[facility] [address] [place] [address] PATHOLOGY RPT PROCEDURE Name: FABIOLA FRIAS Room #: 350-P ADM IN M.R.#: [id number] ������������������ Admission: 06/29/18 ������������������ Date of : 86 Discharge: Report #: [id number] Path Case #: [id number] [facility] Accession Number: [id number] . 01 Material submitted: . PART A: bone - BONE MARROW BIOPSY PART B: bone - BONE MARROW CLOT PART C: bone - BONE MARROW ASPIRATE SLIDES PART D: bone - PERIPHERAL BLOOD SMEARS PART E: bone - BONE MARROW FLOW . 01 Clinical history: . 27 year old woman with anemia, nausea and vomiting, hepatosplenomegaly. . . 02 Diagnosis: Bone marrow aspirate, biopsy, cell clot and peripheral blood: - Peripheral blood with microcytic anemia (per CBC data) - Normocellular bone marrow with trilineage hematopoiesis, mild dyspoiesis/reactive changes and no evidence of lymphoma or acute leukemia. - Scattered non-necrotizing granulomas. - No stainable iron. - See comment. . . Please see included Integrated Oncology report [id number]. AZJ/07/04/2018 . 02 Comment: Overall, the bone marrow is normocellular for the patient's age with trilineage hematopoiesis, mild dyspoiesis/reactive changes and no evidence of lymphoma or acute leukemia. The overall appearance is that of a reactive bone marrow. Scattered non-necrotizing granulomas are identified. Stains for micro-organisms are negative. Of note, no stainable iron is identified. Correlation with clinical history, additional laboratory data and cytogenetics is recommended. (CLW/db; 07/04/2018) . 02 Electronically signed: . Kelly Quintero MD, Pathologist NPI- [id number] . 01 Gross description: . A. Received in formalin labeled "Fabiola Frias, BM bone," is a single needle core of reddy bone measuring 2.4 cm in length and 0.3 cm in diameter. The specimen is submitted entirely in cassette A1, following decalcification. [address] [address] PATHOLOGY RPT PROCEDURE Name: FRIASFABIOLA SAWYER Room #: 350-P [facility] IN M.R.#: [id number] ������������������ Admission: 06/29/18 ������������������ Date of : 86 Discharge: Report #: [id number] Path Case #: [id number] . B. Received in formalin labeled "Frias, Fabiola, BM clot," is an aggregate of dark reddy blood clot measuring 2.6 x 1.9 x 0.5 cm. The specimen is filtered and entirely submitted in cassette B1. (TSD; 07/02/2018) TOB/TOB . 02 Microscopic: . CBC Data (07/02/18): WBC 4,100 /uL, RBC 3.93, hemoglobin 9.1 g/dL, hematocrit 28.7%, MCV 73.0 fL, MCH 23.2 pg, MCHC 31.7 g/dL, RDW 17.4%, and platelet count 163,000 per uL. White blood cell differential (06/29/18): segs 73.5%, lymphs 19.0%, monos 6.2%, eos 0.5%, and basos 0.8%. . Peripheral Blood Smear: No peripheral blood smear submitted. . Aspirate Smears: Cytomorphological examination of the Ackerman's stained aspirate smears show disrupted spicules present. The overall cellularity appears approximately 60%. The myeloid to erythroid ratio is 3:1. Full myeloid maturation is identified and is without significant dyspoiesis. Erythroid maturation is mildly dyserythropoietic with irregular nuclear contours. In a 500 cell differential, there are 1% blasts (no Adnny rods are seen), 63% more differentiated myeloids, 21% erythroid precursors, 13% lymphocytes and 2% plasma cells. Megakaryocytes are proportional in number and both normal and abnormal in morphology with variable sizes and nuclear abnormalities. No lymphoid aggregates or markedly atypical lymphoid cells are seen. Plasma cells are without atypia. Iron stain of the aspirate smear shows 0/4+ iron positivity with disrupted spicules present. No ringed sideroblasts are identified. . Core Biopsy and Cell Clot: The decalcified bone marrow core biopsy is adequate. The bone marrow is normocellular with an overall cellularity of 70-80%. The myeloid to erythroid ratio is 2:1. Myeloid and erythroid maturation are mildly dyspoietic. There is a mild eosinophilia. Megakaryocytes are normal in number and both normal and abnormal in morphology with a focal suggestion of megakaryocyte clustering. No lymphoid aggregates or markedly atypical lymphoid cells are seen. Occasional, small, non-necrotizing granulomas are noted. Bony trabeculae and blood vessels are unremarkable. The cell clot has spicules present that are similar in cellularity and differential morphology as previously described. Again, occasional small non-necrotizing granulomas are noted. . Properly controlled special stains are performed. . Block A1 Iron - 0/4+ iron positivity (no stainable iron) [facility] [address] [place] [address] PATHOLOGY RPT PROCEDURE Name: FABIOLA FRIAS Room #: 350-P ADM IN M.R.#: [id number] ������������������ Admission: 06/29/18 ������������������ Date of : 86 Discharge: Report #: [id number] Path Case #: [id number] Reticulin - No significant reticulin fibrosis AFB - Negative for acid fast bacilli GMS - Negative for fungal organisms . Block B1 Iron - 0/4+ iron positivity (no stainable iron) with spicules present AFB - Negative for acid fast bacilli GMS - Negative for fungal organisms . Flow Cytometry: Flow cytometric immunophenotypic analysis was performed at [facility]. The diagnosis is "slightly left shifted neurophilic maturation without overt increase in blasts, no immunophenotypic evidence of a B-cell or a T-cell lymphoproliferative disorder." There are 0.6% myeloid blasts with no significant immunophenotypic abnormalities. There are 19% lymphocytes. Of the lymphocytes, there are 0.5% polyclonal B-cells. T-cells have a CD4/CD8 ratio of 0.7 and no aberrant T-cell antigen expression. There are 72% neutrophilic cells that show features consistent with left shift. This finding is mild, non-specific and may be reactive; secondary to an infectious/inflammatory process, nutritional deficiency and drug/toxin effect; among others. Please see separate flow cytometry report from [facility] ([id number]). . Cytogenetics: Cytogenetic chromosomal analysis is pending at [facility] ([id number]). (CLW/db; 07/04/2018) . . Special studies report received from [facility], [address] [place] [address], [address], [place], [address], on case [id number], labeled with their number [id number], dated 07/04/2018. . Flow Cytometry: Hematologic Neoplasia Assessment . Clinical History Anemia . Indication for Study Evaluation for anemia . Specimen Bone Marrow Aspirate . Viability 85% (7AAD exclusion) . Interpretation [address] [address] PATHOLOGY RPT PROCEDURE Name: FABIOLA FRIAS Room #: 350-P ADM IN M.R.#: [id number] ������������������ Admission: 06/29/18 ������������������ Date of : 86 Discharge: Report #: [id number] Path Case #: [id number] Bone Marrow Aspirate: - Slightly left shifted neutrophilic maturation without overt increase in blasts (see comment). - No immunophenotypic evidence of a B-cell or a T-cell lymphoproliferative disorder. . Comments This finding is mild, nonspecific and may be reactive; secondary to an infectious/inflammatory process, nutritional deficiency and drug/toxin effect; among others. It is of note that myeloproliferative and myelodysplastic disorders cannot be totally excluded based solely on flow cytometry analysis. Correlation with available clinical, laboratory, and morphologic data is recommended. . Populations Analyzed Myeloid Blasts: 0.6% No significant immunophenotypic abnormalities Lymphocytes: 19% B-cells: 0.5%, polytypic/polyclonal sIg light chain pattern T-cells: no significant abnormalities of the markers tested CD4+ T-cells: 6.0% (including 1.4% CD57+ cells) CD8+ T-cells: 8.9% (including 3.4% CD57+ cells) CD4:CD8: 0.7 NK cells: 0.5% Neutrophilic Cells: 72% Immunophenotypic features consistent with left-shift (decreased CD16, CD10, and CD11c) Monocytic Cells: 4% No significant abnormalities of the markers tested Eosinophils: 2% No relative increase Basophils: 0.3% No relative increase Plasma Cells: 0.0% Not detected (plasma cells are typically underrepresented by flow cytometry; cytoplasmic light chains were not assessed) Hematogones: 0.1% Normal B-cell precursors CD45 Negative 2% No significant reactivity with the markers tested Events/Debris: (may represent unlysed red blood cells, erythroid precursors, platelets, debris, etc.)(erythroid precursors may be underrepresented due to sample lysis/processing) . . Morphologic Evaluation A slide was reviewed for data quality consultant purposes only. . Specimen Description Total Cell Yield: 5.28X 10 and 6 . Pertinent Prior Test Results [address] [address] PATHOLOGY RPT PROCEDURE Name: FABIOLA FRIAS Room #: 350-P ADM IN M.R.#: [id number] ������������������ Admission: 06/29/18 ������������������ Date of : 86 Discharge: Report #: [id number] Path Case #: [id number] Received Date Test Type Specimen Type Result 06/20/2018 IHC - Technical Tissue Result Number: [id number] Only . Reagent(s) Used CD2, CD3, CD4, CD5, CD7, CD8, CD10, CD11b, CD11c, CD13, CD14, CD16, CD19, CD20, CD33, CD34, CD38, CD45, CD56, CD57, CD64, CD117, HLA-DR, kappa, lambda . at [employer] [place]. Isabell Galvin MD Pathologist . . Intended Use Flow cytometry is optimally used to immunophenotypically characterize abnormal populations when they are detected. Negative flow cytometry results do not exclude lymphoma or neoplasia. Possible false negative flow cytometry results may occur in, but are not limited to, the following: neoplastic cells in Hodgkin lymphoma are not typically adequately represented by routine clinical flow cytometry; neoplastic cells may be lost or inadequately represented due to degeneration, sample processing, sampling artifact, or patchy involvement; plasma cells are typically underrepresented by flow cytometry; immature cells/blasts may be underrepresented due to hemodilution; myeloproliferative disorders and low grade myelodysplasia may not have immunophenotypic abnormalities or increased blasts. Correlation with all available clinical, laboratory, and morphologic data is always necessary to assess for the possibility of false negative flow cytometry results and to establish a diagnosis. Each marker in this analysis was used to assess for potential antigenic abnormalities or to evaluate detected abnormalities. . Disclaimer(s) This test was performed at [employer]. at [address] [place] [address], [phone] - Electromechanical Engineer: Hermes Segovia MD. [facility] is a business unit of [employer] a wholly-owned subsidiary of [employer]. . Any image or images that accompany this report are vendor representatives images only and should not be used to render a diagnosis. . This test was developed and its performance characteristics determined by [facility]. It has not been cleared or approved by the Food and Drug Administration (FDA). The FDA has determined that such clearance or approval is not necessary. [address] [place] [address] PATHOLOGY RPT PROCEDURE Name: FABIOLA FRIAS Room #: 350-P ADM IN M.R.#: [id number] ������������������ Admission: 06/29/18 ������������������ Date of : 86 Discharge: Report #: [id number] Path Case #: [id number] . For inquiries, the physician may contact Lab: [phone] . A complete copy of the report is on file. . Professional services performed by [facility]. at [address], [place] [address]. Technical services performed by [employer] [facility], [place]. at [address], [place] [address]. . ([facility] 07/04/2018) . . 02 Pathologist provided ICD-10: D64.9, D75.9 . 02 CPT . 840590, 798756, 608973, 115831, 422578, 884649, 265529, 712579, 755536, 096515, 663757, 467984 Specimen Comment: A courtesy copy of this report has been sent to Specimen Comment: [phone], . Specimen Comment: Report sent to / DR SCHULTZ Performed at: [address], [place], [place] [id number] MD Solomon Manning MD Phone: [phone] Performed at: [address] [id number] MD Chuck Phillips MD Phone: [phone]
--- NOTE | 2018-07-04 19:46 | NUR ---
PT ALERT AND ORIENTED TIMES FOUR. O2 INCREASED THIS MORNING TO 6L, PT NOW AT 5L. OTHER VSS, IVF INFUSING PER ORDER, SR ON TELE. PT CONTINUES TO C/O PAIN PRN PO PAIN MEDICATION ONLY GIVEN THIS SHIFT WITH GOOD RELEIF. PT EATS VERY SMALL PORTIONS OF MEALS. PT UP AB MARY. PT BOYFRIEND AT BEDSIDE. WILL CONTINUE TO MONITOR.
[2018-07-04 19:52] VITALS: BP 97/54
--- NOTE | 2018-07-05 03:05 | NUR ---
SLEPT MOST OF SHIFT. PAIN MEDICATION EVERY 4-6 HOURS FOR COMFORT WITH NOTED RELIEF. REMAINS ON 5L/NC AT THIS TIME WITH NO COMPLAINTS OF SHORTNESS OF AIR. UP AD MARY IN ROOM WITH STEADY GAIT. MAINTAIN SAFE ENVIRONMENT. WORKING ON GOALS AND PLAN OF CARE FOR NOC. PROGRESSING SLOWLY TOWARDS DISCHARGE GOALS. CONTINUE TO ASSES CLOESLY.
[2018-07-05 03:30] VITALS: BP 108/62
[2018-07-05 06:52] LABS: HEMATOCRIT 28.4 % (37.0-47.0); MCH 23.1 pg (26.0-34.0); MCHC 31.6 g/dL (28.0-37.0); MCV 73.2 fL (80.0-100.0); RBC 3.88 mil/uL (4.20-5.00); RDW 17.6 % (10.5-14.5); WBC 3.8 thou/uL (4.0-11.0)
[2018-07-05 07:17] LABS: CREATININE 0.7 mg/dL (0.6-1.0); POTASSIUM 4.3 mmol/L (3.5-5.1)
[2018-07-05 07:19] VITALS: BP 112/67
--- NOTE | 2018-07-05 13:45 | NUR ---
SW reviewed chart and spoke with nursing. Awaiting biopsy results. Pt to have TB test. Pt remains on continuous O2 (5L). Plan is for pt to discharge home when medically stable. SW is following to assist as needed with discharge planning.
--- NOTE | 2018-07-05 15:10 | HC ---
[facility] [place] [address] [place] [address] CONSULTATION Name: JO ANN FRIAS Room #: 350-P ADM IN M.R.#: [id number] Admission: 06/29/18 ������������������ Attend Phys: Chip Day MD Discharge: ������������������ Date of : 86 Report #: [id number] THIS REPORT FOR: //name// CC: FAM physician/PCP Chip Day PULMONARY CONSULTATION REFERRING PHYSICIAN: Chip Day MD. REASON FOR REFERRAL: Hypoxia. HISTORY OF PRESENT ILLNESS: The patient is a 27-year-old white female with multiple medical problems including abdominal pain. She has developed hypoxia since admission. A pulmonary consultation was requested. Since admission, she has undergone extensive workup including liver biopsy, which showed noncaseating granuloma. I do not believe cultures were sent. She has been having problems with abdominal pain. She was found to have hepatosplenomegaly. Last few days, she has been complaining of pain, has been given narcotics. She has diabetes mellitus type 1 with history of DKA. A CT chest was recently performed showing evidence of bilateral reticular nodular infiltrates, small scattered pulmonary nodules are noted along with mild ground glass opacities. She has had prior CT images as early as 01/2018, which was grossly unremarkable. Hepatomegaly was noted. Currently, she complains of abdominal pain. She denies any dyspnea or productive cough. She states that she has never smoked tobacco. PAST MEDICAL HISTORY: As mentioned above including diabetes mellitus type ____, history of DKA, history of osteomyelitis, MRSA involving the thumb, status post partial left thumb amputation, ADHD. PAST SURGICAL HISTORY: Status post , left ovarian cyst removal, right oophorectomy due to fallopian tube torsion, appendectomy, herniorrhaphy, lipoma resection. ALLERGIES: DOXYCYCLINE, WHICH CAUSES SEVERE REACTION, TYPE UNKNOWN, FENTANYL CAUSES HIVES, PENICILLIN CAUSES ANAPHYLAXIS, HYDROCODONE, CAUSES NAUSEA AND VOMITING. [facility] [address] [place] [address] CONSULTATION Name: JO ANN FRIAS Room #: 350-P [place] IN [facility]#: [id number] Admission: 06/29/18 ������������������ Attend Phys: Chip Day MD Discharge: ������������������ Date of : 86 Report #: [id number] MEDICATIONS: List reviewed in the MAR. FAMILY HISTORY: Notable for heart disease, breast cancer, ovarian cancer in the family members. Father had alcoholic liver disease. SOCIAL HISTORY: She has never smoked, does not drink. She is engaged to her fiance. REVIEW OF SYSTEMS: As mentioned above, otherwise 10-point system review negative. PHYSICAL EXAMINATION: GENERAL: She is awake, alert, somewhat drowsy from a nap. VITAL SIGNS: Temperature is 99 degrees Fahrenheit, pulse is 115, respiratory rate is 20, blood pressure 128/62 mmHg, saturation is 94%. HEENT: Normocephalic, atraumatic. NECK: Supple, without any lymphadenopathy or thyromegaly. CHEST: Breath sounds are fair due to poor effort. Few scattered crackles in the bases. No wheezes. CARDIOVASCULAR: Normal S1, S2. No murmurs or gallop. There is no JVD, no carotid bruit. Pulses are 2+/4+ bilaterally. BREASTS: Exam is deferred. ABDOMEN: Soft, mildly tender, no masses felt. GENITOURINARY: Deferred. RECTAL: Deferred. EXTREMITIES: There is no edema, cyanosis or clubbing. LABORATORY DATA: CT chest, high resolution scan as mentioned above. CT abdomen shows distention of the bladder. Abdominal ultrasound shows hepatosplenomegaly, portal vein and hepatic vein appears to be patent. Histoplasma antigen was negative. Bone marrow biopsy pending. Liver biopsy again shows non-necrotizing granulomatous inflammation in the portal tracts, periportal areas as well as lobules. Sed rate 56. Electrolytes are normal and creatinine is normal. Liver enzymes are mildly elevated. WBC 4100, hemoglobin 9.1, platelets are normal. Albumin 2.9. IMPRESSION: 1. Acute hypoxic respiratory failure in this 27-year-old white female with multiple medical problems. Chest CT as mentioned above showing moderate bilateral reticular nodular infiltrates. Recent liver biopsy shows noncaseating granuloma. The patient's hypoxia may be related to interstitial process along with over sedation. 2. Moderate bilateral reticular nodular infiltrates, mild ground glass opacities. As mentioned above, ultrasound biopsy showing noncaseating [facility] [address] [place] [address] CONSULTATION Name: JO ANN FRIAS Room #: 350-P ADM IN M.R.#: [id number] Admission: 06/29/18 ������������������ Attend Phys: Chip Day MD Discharge: ������������������ Date of : 86 Report #: [id number] granuloma. This may be the same process. Unfortunately, the biopsy was not sent for culture for fungus. It is possible the patient may have the same process involving her lung parenchyma. Question this might represent sarcoidosis. 3. Hepatosplenomegaly, status post liver biopsy as mentioned above. ? etiology. 4. Elevated liver enzymes. 5. Diabetes mellitus type 1, past history of diabetic ketoacidosis. RECOMMENDATION AND DISCUSSION: We will await GI's see comments regarding the liver biopsy results. We will await bone marrow biopsy. Continue O2 to keep saturation 90-92%. In terms of further workup, the patient can be followed in the office with a followup CT chest in 4-6 weeks. If nodular infiltrates persists, diagnostic bronchoscopy with bronchial lavage will be helpful. Thank you for this consultation. ��������������������������������������������� <ELECTRONICALLY SIGNED> ���������������������������������������� By: Jorge Tsai MD ��������������������������������������������� 07/05/18 1510 1805 1958 Jorge Tsai MD /nt
[2018-07-05 16:52] VITALS: BP 101/58
--- NOTE | 2018-07-05 18:41 | NUR ---
PT ALERT AND ORIENTED TIMES FOUR. VSS, 97%3L, SR ON TELE. C/O PAIN PRN PAIN MEDICATION CONTROLLING PAIN WELL. PT TOLERATES MEDS AND MEALS. UP AB ;IB WITH STEADY GAIT. FRIEND AT BEDSIDE. SLOWLY PROGRESSING TOWRADS POC GOALS.
[2018-07-05 19:10] VITALS: BP 115/67
[2018-07-06 03:28] VITALS: BP 97/56
[2018-07-06 05:38] LABS: HEMATOCRIT 26.3 % (37.0-47.0); HEMOGLOBIN 8.4 gm/dL (12.0-15.0); MCH 23.5 pg (26.0-34.0); MCV 73.4 fL (80.0-100.0); RBC 3.58 mil/uL (4.20-5.00); RDW 17.9 % (10.5-14.5); WBC 4.2 thou/uL (4.0-11.0)
[2018-07-06 05:49] LABS: CALCIUM 7.9 mg/dL (8.5-10.1); CREATININE 0.6 mg/dL (0.6-1.0); POTASSIUM 4.1 mmol/L (3.5-5.1)
--- NOTE | 2018-07-06 06:07 | NUR ---
PT MAKING PROGRESS TOWARDS GOALS. X2 DOSES OF PERCOCET GIVEN FOR COMPLAINTS OF LUQ PAIN. PT REPORTING PAIN 6-7/10 WITH IMPROVEMENTS TO 4-6/10 AFTER DOSING. SEE CHARTING.
[2018-07-06 08:00] VITALS: BP 99/56
[2018-07-06 16:41] VITALS: BP 99/55
[2018-07-06 17:17] LABS: AMP/METHAMP Negative (Negative); BARBITURATES Negative (Negative); BENZODIAZEPINES POSITIVE (Negative); COCAINE Negative (Negative); METHADONE Negative (Negative); OPIATES Negative (Negative); PCP Negative (Negative)
--- NOTE | 2018-07-06 19:01 | NUR ---
ASSUMED CARE @ 0700 07/06/18, PT ASSESSMENTS AND VS COMPLETED PER MST ORDERS. PT ALERT AND ORIENTED X 4, PT VERY HOSTILE AND UN-COOPERATIVE DURING THE SHIFT, PT REFUSED MAJORITY OF MEDICATIONS DURING THE SHIFT, SEE EMAR FOR SPECIFICS. PT ON 3L, NO SIGNS OF SOA, DR BOYER HERE TO VISIT WITH, RN INFORMS HIM ABOUT PT REFUSING MEDICATIONS, DR BOYER ADVISES RN TO DOCUMENT. PT REFUSES TO EAT BREAKFAST AND LUNCH, INSULIN NOT GIVEN IN THE AM, BUT GIVEN 3 U AT LUNCH FOR BS IN THE 170'S. PT ABLE TO EAT PART OF DINNER BUT BS WAS 138 AND SO RN DID NOT FEEL IT WAS APPROPRAITE TO GIVE ORDERED INSULIN. PT ABLE TO VOID, URINE SAMPLE COLLECTED. STOOL SAMPLE STILL PENDING FOR COLLECT FROM THE PT. PT REFUSED XRAY TODAY. PLAN OF CARE- CONT TO MONITOR.
[2018-07-06 19:30] VITALS: BP 90/58
[2018-07-07 04:00] VITALS: BP 111/68
--- NOTE | 2018-07-07 04:28 | NUR ---
SLEPT MOST OF SHIFT. UP AD MARY IN ROOM. MAINTAIN SAFE ENVIRONMENT. BOYFRIEND AT BEDSIDE. WORKING ON GOALS AND PLAN OF CARE FOR NOC. NO COMPLAINTS OF NAUSEA THIS SHIFT. TAKES O2 OFF AT TIMES. PROGRESSING SLOWLY TOWARDS DISCHARGE GOALS. PAIN MEDICATION EVERY 4-5 HOURS FOR COMFORT. CONTINUE TO ASSES. STOOL SAMPLE SENT THIS SHIFT.
[2018-07-07 07:07] VITALS: BP 98/61
[2018-07-07 11:38] VITALS: BP 106/63
--- NOTE | 2018-07-07 14:46 | NUR ---
PT ALERT AND ORIENTED TIMES FOUR. VSS, 98%3L, SR ON TELE. C/O PAIN PRN PAIN MEDICATION GIEVN WITH GOOD RELEIF. PT HAS VERY POOR APPETITE THIS SHIFT. PT UP AB MARY. FAMILY AT BEDSIDE. PT SLOWLY PROGRESSING TOWRADS POC GOALS.
[2018-07-07 17:13] VITALS: BP 116/78
--- NOTE | 2018-07-07 19:35 | NUR ---
RT CHEST PORT NEEDLE CHANGED TODAY FOR WEEKLY MAINT. PT EXTREMELY AGITATED AND WAS RESISTANT WITH COOPERATION. PORT SITE SLIGHTLY FIRM AND TENDER BUT PT STATED IT IS ALWAYS LIKE THIS. PT VERY BELIGERENT WHEN ATTEMPTING TO ASK MORE HX. WBC NOT TRENDING UP AND PT DENIES FEVERS.
[2018-07-07 20:55] VITALS: BP 82/46
--- NOTE | 2018-07-08 04:10 | NUR ---
SLEPT MOST OF SHIFT. REQUEST PAIN MEDICATION EVERY FOUR HOURS NEEDED. WORKING ON GOALS AND PLAN OF CARE FOR NOC. NOT PROGRESSING SLOWLY TOWARDS DISCHARGE GOALS AT THIS TIME. PLAN FOR BRONCH ON SUNDAY. MAINTAIN SAFE ENVIRONMENT. CONTINUE TO ASSES.
[2018-07-08 05:00] VITALS: BP 105/47
[2018-07-08 07:43] VITALS: BP 91/52
--- NOTE | 2018-07-08 09:02 | NUR ---
REPORTS OF WANTING TO SLEEP, PUT NAME AND DATE ON BOARD AND LET THEM KNOW I'D RETURN AFTER THEY HAD MORE SLEEP, SHE ACKNOWLEDGED
[2018-07-08] MEDS ORDERED: VALIUM5 MG PO (09:35)
[2018-07-08] MEDS ORDERED: NOVOLOG100 UNIT/1 SUBQ (09:35)
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
[2018-07-08 12:39] VITALS: BP 117/57
--- NOTE | 2018-07-08 16:52 | NUR ---
TRANSFERRED PT TO 432, HER BF GATHERED UP ALL THEIR BELONGINGS WE WHEELED HER OVER TO HER NEW ROOM AND REPLACED 02; PT WAS IN GOOD SPIRITS, GAVE REPORT TO HÉCTOR SHETTY
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
--- NOTE | 2018-07-08 20:00 | NUR ---
PATIENT'S BS WAS 437 AT 1650. OFFERED 25 UNITS PLUS THE SLIDING SCALE. REFUSED THE SLIDING SCALE, AGREED TO TAKE 25 UNITS WHICH WAS GIVEN. LATER AT 1827 LAB CALLED WITH A CRTICAL BLOOD SUGAR OF 512. IVA GIL WAS CALLED AND SHE GAVE ORDER TO CHECK BS IN 2 HOURS AND REPROT IT TO HER.
[2018-07-08 21:00] VITALS: BP 106/57
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
[2018-07-09 04:30] VITALS: BP 89/48
[2018-07-09 08:04] LABS: ANION GAP < 0 mmol/L (7-16); BUN 13 mg/dL (7-18); CHLORIDE 99 mmol/L (98-107); CO2 27 mmol/L (21-32); CREATININE 0.6 mg/dL (0.6-1.0); GLUCOSE 68 mg/dL (74-106); POTASSIUM 3.5 mmol/L (3.5-5.1); SODIUM 123 mmol/L (136-145)
[2018-07-09 08:45] VITALS: BP 136/76
[2018-07-09 09:18] LABS: ABSOLUTE NEUTROPHILS 5.3 thou/uL (1.4-8.2); BASOPHILS 0.5 % (0.0-2.0); EOSINOPHILS 0.1 % (0.0-3.0); HEMOGLOBIN 10.7 gm/dL (12.0-15.0); LYMPHOCYTES 10.6 % (24.0-44.0); MCH 22.8 pg (26.0-34.0); MCHC 31.4 g/dL (28.0-37.0); MCV 72.7 fL (80.0-100.0); MONOCYTES 3.8 % (1.0-8.0); RBC 4.68 mil/uL (4.20-5.00); WBC 6.3 thou/uL (4.0-11.0)
[2018-07-09 09:34] LABS: ALBUMIN 2.8 g/dL (3.4-5.0); CALCIUM 8.8 mg/dL (8.5-10.1); CREATININE 0.7 mg/dL (0.6-1.0); POTASSIUM 4.7 mmol/L (3.5-5.1); TOTAL BILIRUBIN 0.4 mg/dL (<0.1-1.0); TOTAL PROTEIN 7.4 g/dL (6.4-8.2)
--- NOTE | 2018-07-09 09:45 | 2DMMODE ---
[facility] [employer] [place] [address] 2 D/M-MODE ECHOCARDIOGRAM Name: JO ANN FRIAS Room #: 428-P [facility] IN [facility].#: [id number] ������������� Admission: 06/29/18 ������������� Attend Phys: Chip Day MD Discharge: ��� ������������� ��� Date of : 86 Date of Service: 07/09/18 0945 �� Report #: [id number] �������� ��������������������������������������������[id number] THIS REPORT FOR: //name// APPROVED REPORT Study performed: 07/09/2018 08:06:47 EXAM: Comprehensive 2D, Doppler, and color-flow Echocardiogram Patient Location: Bedside BSA: 2.04 HR: 107 bpm BP: 89/48 mmHg Rhythm: Tachycardia Other Information Study Quality: Good Indications Diabetes Sepsis 2D Dimensions RVDd: 42.94 mm IVSd: 10.27 (7-11mm) LVOT Diam: 20.00 (18-24mm) LVDd: 46.32 mm PWd: 8.64 (7-11mm) Ascending Ao: 24.43 (22-36mm) LVDs: 30.43 (25-40mm) Aortic Root: 29.27 mm IVC: 13.00 mm Volumes Left Atrial Volume (Systole) Single Plane 4CH: 38.16 mL Single Plane 2CH: 44.31 mL LA ESV Index: 23.00 mL/m2 Aortic Valve AoV Peak Evelio.: 1.73 m/s AO Peak Gr.: 11.94 mmHg LVOT Max P.77 mmHg LVOT Max V: 1.30 m/s JARETH Vmax: 2.36 cm2 Mitral Valve E/A Ratio: 1.1 MV Decel. Time: 237.59 ms MV E Max Evelio.: 0.89 m/s [facility] [address] [address] 2 D/M-MODE ECHOCARDIOGRAM Name: JO ANN FRIAS Room #: 428-P [facility] IN ..#: [id number] ������������� Admission: 06/29/18 ������������� Attend Phys: Chip Day MD Discharge: ��� ������������� ��� Date of : 86 Date of Service: 07/09/18 0945 �� Report #: [id number] �������� ��������������������������������������������[id number] MV A Evelio.: 0.80 m/s MV PHT: 68.90 ms IVRT: 51.90 ms Pulmonary Valve PV Peak Evelio.: 1.20 m/s PV Peak Gr.: 5.76 mmHg Pulmonary Vein P Vein S: 0.57 m/s P Vein A: 0.48 m/s P Vein D: 0.51 m/s P Vein A Dur.: 86.5 msec P Vein S/D Ratio: 1.12 Tricuspid Valve TR Peak Evelio.: 2.99 m/s TR Peak Gr.: 35.70 mmHg PA Pressure: 41.00 mmHg Left Ventricle The left ventricle is normal size. There is normal LV segmental wall motion. There is normal left ventricular wall thickness. The left ventricular systolic function is normal. The left ventricular ejection fraction is within the normal range. LVEF is 55-60%. The left ventricular diastolic function is normal. Right Ventricle The right ventricle is normal size. The right ventricular systolic function is normal. Atria The left atrium size is normal. Right atrium is dilated. Aortic Valve The aortic valve is normal in structure. No aortic regurgitation is present. There is no aortic valvular stenosis. Mitral Valve The mitral valve is normal in structure. There is no mitral valve regurgitation noted. No evidence of mitral valve stenosis. Tricuspid Valve The tricuspid valve is normal in structure. There is trace tricuspid regurgitation. Estimated PAP 40 mmHg. There is mild-moderate pulmonary hypertension. Pulmonic Valve The pulmonary valve is normal in structure. There is no pulmonic [address] [address] 2 D/M-MODE ECHOCARDIOGRAM Name: JO ANN FRIAS Room #: 428-P [facility] IN [facility]#: [id number] ������������� Admission: 06/29/18 ������������� Attend Phys: Chip Day MD Discharge: ��� ������������� ��� Date of : 86 Date of Service: 07/09/18 0945 �� Report #: [id number] �������� ��������������������������������������������[id number] valvular regurgitation. Great Vessels The aortic root is normal in size. IVC is normal in size and collapses >50% with inspiration. Pericardium Trace pericardial effusion. <Conclusion> The left ventricular systolic function is normal. There is normal LV segmental wall motion. LVEF is 55-60%. Normal diastolic function Aortic valve normal without stenosis or insufficiency The mitral valve is normal in structure. No mitral valve regurgitation There is trace tricuspid regurgitation. Estimated pulmonary artery pressure of 40 mmHg. Trace pericardial effusion. ��������������������������������������������� <ELECTRONICALLY SIGNED> ���������������������������������������� By: Jas Powers MD, FACC ��������������������������������������������� 07/09/1845 Jas Powers MD, FACC /INF
[2018-07-09 09:50] LABS: PLATELET COUNT 166 thou/uL (150-400); PLATELET ESTIMATE NORMAL
[2018-07-09 09:51] LABS: ANISOCYTOSIS 1+; LARGE PLATELETS FEW; MICROCYTES 2+
[2018-07-09 10:52] LABS: URINE BILIRUBIN NEGATIVE (Negative); URINE BLOOD NEGATIVE (Negative); URINE CLARITY CLEAR; URINE COLOR YELLOW; URINE GLUCOSE-RANDOM* 3+ (Negative); URINE KETONES NEGATIVE (Negative); URINE LEUKOCYTES-REFLEX NEGATIVE (Negative); URINE NITRITE-REFLEX NEGATIVE (Negative); URINE PROTEIN (DIPSTICK) NEGATIVE (Negative); URINE SPECIFIC GRAVITY <= 1.005 (1.005-1.035); URINE UROBILINOGEN 0.2 E.U./dl (0.2-1.0)
[2018-07-09 16:46] VITALS: BP 99/53
--- NOTE | 2018-07-09 19:38 | NUR ---
ASSUMED CARE AT 0700, SHIFT ASSESSMENT DONE, MEDS GIVEN, VSS. BS WAS 72, REFUSED COVERAGE, 50 UNITS OF LONG ACTING WAS GIVEN. FOR LUNCH WAS 82, PATIENT AGAIN REFUSED ALL SHORT ACTING INSULIN. HAD A CHEST XRAY DONE. DID NOT LIKE DINNER, WAS NOT ABLE TO ORDER DINNER OF HER OWN CHOICE, SO DID NOT EAT DINNER. REFUSED ALL INSULIN AND REGLAN FOR DINNER. WILL CONTINUE TO ASSESS AND ASSIST WITH ADLs NEEDED.
[2018-07-09 21:50] VITALS: BP 93/58
--- NOTE | 2018-07-10 05:34 | NUR ---
PT. ALERT AND ORIENTED X4 UP AND AMBULATORY. STATED PAIN WAS A 6 IN LEFT UPPER ABD QUAD PAIN MED ADMINISTRED. POSITIVE BLOOD CULTURES NOTED AND ANTIBIOTIC STATED PER DOCTORS ORDER. PT REFUSED LOVENOX PT EDUCATED ON RISK. EVENING MEDS GIVEN AND POC DONE. CONSENT FOR MARCUS SIGNED AND WITNESS, WILL CONTINUE TO MONITOR.
[2018-07-10 06:14] VITALS: BP 96/55
--- NOTE | 2018-07-10 08:27 | NUR ---
Followup: pt npo for bronchoscopy. Will followup again in 1-2 days.
--- NOTE | 2018-07-10 09:57 | NUR ---
PT ROOM SEARCHED PER DR THACKER AND DR COLLINS REQUEST. WITH SECURITY AT BEDSIDE, ROOM SEARCHED AND FOUND LARGE PILLOWCASE FULL OF USED SHARPS CONTAINER ITEMS. PT MOVED TO ROOM ACROSS FROM THE DESK AND PATIENT ITEMS AND ROOM CHECKED BY SECURITY. BENADRYL AND SYRINGESW FOUND BY SECURITY IN PATIENT BELONGINGS. ALL MEDICATIONS AND OTHER ITEMS CONFINSCATED FROM PATIENT BELONGINGS AND ROOM. PT INFORMED OF ROOM CHANGE AND POLICY. WILL HAVE VISITORS CHECK IN WITH NURSE STATION ON ARRIVAL.
--- NOTE | 2018-07-10 11:50 | NUR ---
PT WAS FOUND WITH USED SYRINGES AND OTHER DRUG PARAPHENALIA IN HER BAG BY NURSES AND SECURITY. SHIKHARA IN ROOM AND WANTED PORT DEACCESSED SO PT COULD DC P VAT DID NOT FLUSH WITH SALINE OR HEPARIN PORT IS SUSPECTED TO CONTAIN GRAM NEGATIVE RODS. SITE WAS CLEAR BUT FIRM AND SOME TENDERNESS.
[2018-07-10 13:23] VITALS: BP 96/55
[2018-07-10 18:09] LABS: SYPHILIS AB Negative (Negative)
--- NOTE | 2018-07-10 19:44 | NUR ---
[facility] CARE AT 0700, SHIFT ASSESSMENT DONE, NPO SINCE LAST NIGHT. WENT FOR A [facility] THIS AM. AT 0930 DR THACKER CAME UP TO THE FLOOR AND ASKED THE SECURITY TO DO A ROOM SEARCH. SECURITY FOUND 1 PILLOW CASE FULL OF USED SYRINGES, BUTTERFLY NEEDLES, FLUSHES FILLED WITH BLOOD, LOVANOX NEEDLES, INSULIN NEEDLES. ALSO IN HER PURSE, 3-4 SYRINGES AND SOME GEL PILLS WERE FOUND. THE SYRINGES WERE FILLED WITH BLUISH AND CLOUDY LIQUIDS. ALL WERE CONFISCATED, WINDOW CUTTER, SUPERVISOR REFINING DR SCHULTZ, RISK MANAGEMENT HARJINDER AND PHARMACIST ROBERTO WAS INFORMED. DR THACKER WROTE ORDERS FOR PATIENT TO BE DISCHARGED SOON SHE CAME FROM [facility]. PATIENT CAME UP AT 1130, DR THACKER ASKED THIS SPIRITUAL COUNSELOR TO BRING IN THE CONFISCATED ITEMS, PATIENT WAS SHOWED EVERYTHING BUT SHE DENIED THAT THOSE STUFF DID NOT BELONG TO HER. THE SHARPS CONTANIER IN THE ROOM WAS REPLACED WITH A NEW ONE. GLENNA SALGADO FILED A VERGE REPORT. PATIENT HAD A SITTER FROM 1145 UNTIL 1330 WHEN SHE DECIDED TO LEAVE. SHE WAS WHEELED OUT IN A WHEELCHAIR BY NURSING STAFF. DISCHARGE PAPER WORK WAS GIVEN, SCRIPTS WAS GIVEN. EVERYONE WAS NOTIFIED ABOUT DISCHARGE.
--- NOTE | 2018-07-11 12:17 | HC ---
[facility] [place] [address] CONSULTATION Name: JO ANN FRIAS Room #: 428-P [facility] IN M.R.#: [id number] Admission: 06/29/18 ������������������ Attend Phys: Chip Day MD Discharge: 07/10/18 ������������������ Date of : 86 Report #: [id number] THIS REPORT FOR: //name// CC: [facility] physician/PCP Chip Day HISTORY OF PRESENT ILLNESS: This 27-year-old white female was admitted through the Emergency Room with complaints of left upper quadrant abdominal pain and associated nausea and vomiting. CAT scan has been performed, showing an enlarged spleen. I have been asked to see her in consultation in that regard. She has also been seen by Infectious Disease and GI service. A subsequent bone marrow and liver biopsy were performed by Interventional Radiology, with the results pending at the time of this dictation. She has also been at the Emergency Room at [facility] on 06/13/2018 and had a CAT scan performed there. On reviewing the records, there was noted splenomegaly dating back to last fall and I have asked that those scans be clouded over so that could be reviewed and compared with her recent studies here. PAST MEDICAL HISTORY: Significant for insulin-dependent diabetes, which has been poorly controlled. She has been taking oral iron twice a day for anemia, but does this with food. She says that she is intolerant of iron on an empty stomach and has received both red cells and parenteral iron infusions in the past. She also suffers from anxiety and takes diazepam. Remaining medications were in the MFR. ALLERGIES: Noted. FAMILY HISTORY: Positive for ovarian cancer in an aunt, breast cancer in grandmother. There is diabetes as well as alcoholic cirrhosis in her father. Grandfather had heart disease. SOCIAL HISTORY: She denies alcohol or tobacco and illicit drugs. REVIEW OF SYSTEMS: As in the history of present illness, with no recent sweats, chills, or unintended weight loss. PHYSICAL EXAMINATION: GENERAL: Shows her to be alert. NECK: Supple. CHEST: Clear. ABDOMEN: Shows pain in the left upper quadrant with palpable spleen. EXTREMITIES: No clubbing, cyanosis or edema. SKIN: Normal turgor with tattoos. NEUROLOGIC: No focal localizing signs. PSYCHIATRIC: Not agitated or confused. [facility] [address] [place] [address] CONSULTATION Name: JO ANN FRIAS Room #: 428-P [facility] IN ..#: [id number] Admission: 06/29/18 ������������������ Attend Phys: Chip Day MD Discharge: 07/10/18 ������������������ Date of : 86 Report #: [id number] ASSESSMENT: Splenomegaly. PLAN: She does have liver function abnormalities and liver biopsy is pending. Her CBC shows mild iron-deficiency anemia only with non-elevated retic count and I suspect her enlarged spleen is not on hematologic basis. There is no other adenopathy noted on scans, but these are to be reviewed and compared by Radiology. I will await the results of these pending studies and full and further recommendations will be forthcoming. Thanks for allowing me to participate in her care. ��������������������������������������������� <ELECTRONICALLY SIGNED> ���������������������������������������� By: Katelyn Meredith MD ��������������������������������������������� 07/11/18 1217 [id number] Katelyn Meredith MD /nt
--- NOTE | 2018-07-12 17:06 | PATH ---
[facility] [address] [place] [address] PATHOLOGY RPT PROCEDURE Name: JO ANN FRISA Room #: 428-P [facility] IN M.R.#: [id number] ������������������ Admission: 06/29/18 ������������������ Date of : 86 Discharge: 07/10/18 Report #: [id number] Path Case #: [id number] Note [facility] Accession Number: [id number] TESTS RESULT FLAG UNITS REF RANGE LAB Clinician Provided Cytology Information No. of containers..01 Other (Miscellaneous) Source: BRONCH BRUSHINGS DIAGNOSIS: 02 BRONCH BRUSHINGS NEGATIVE FOR MALIGNANT CELLS. REACTIVE BRONCHIAL CELLS ARE PRESENT. PULMONARY MACROPHAGES (DUST CELLS) ARE PRESENT. ABUNDANT RED BLOOD CELLS ARE PRESENT. Pathologist ICD10: 02 J84.9 Signed out by: Natasha Lin MD, Pathologist NPI- [id number] Performed by: Vicente Newman, Aircraft Shipping Checker ([facility]) Gross description: 01 25ML, COLORLESS, CLEAR /LCS FLAG LEGEND: L-Low Normal,H-High Normal,LL-Alert Low,HH-Alert High <-Panic Low,>-Panic High,A-Abnormal,AA-Critical Abnormal Performed at: [address] [place] [address] Solomon Manning MD, [address] [address] Natasha Lin MD, Specimen Comment: A courtesy copy of this report has been sent to Specimen Comment: [phone], . Specimen Comment: Report sent to / DR SCHULTZ Performed at: [address], [place], [place] [id number] MD Solomon Manning MD Phone: [phone]
== END 2018-07-10 14:00 | disposition home health service (06) | DRG 441 ==
LOC: ER 10:10 → EROBS 12:40 → 3W 12:40 → 4E 07-08 16:52
PROVIDERS: Hospitalist; Internal Medicine Infectious Disease; Internal Medicine Pulmonary Disease; Nurse Practitioner; Physician Assistant; Radiology Vascular & Interventional Radiology; Specialist; ADMIT Hospitalist
DX: K75.3 Granulomatous hepatitis, not elsewhere classified (principal); J96.01 Acute respiratory failure with hypoxia; J18.9 Pneumonia, unspecified organism; E87.1 Hypo-osmolality and hyponatremia; N39.0 Urinary tract infection, site not specified; E46 Unspecified protein-calorie malnutrition; R16.2 Hepatomegaly with splenomegaly, not elsewhere classified; E10.65 Type 1 diabetes mellitus with hyperglycemia; F41.9 Anxiety disorder, unspecified; F90.9 Attention-deficit hyperactivity disorder, unspecified type; R74.0 Nonspecific elevation of levels of transaminase and lactic acid dehydrogenase [LDH]; R33.9 Retention of urine, unspecified; D50.9 Iron deficiency anemia, unspecified; E66.9 Obesity, unspecified; D86.0 Sarcoidosis of lung; F32.9 Major depressive disorder, single episode, unspecified; Z68.32 Body mass index [BMI] 32.0-32.9, adult; Z98.891 History of uterine scar from previous surgery; Z86.14 Personal history of Methicillin resistant Staphylococcus aureus infection; Z89.012 Acquired absence of left thumb; Z90.49 Acquired absence of other specified parts of digestive tract; Z90.79 Acquired absence of other genital organ(s); Z90.721 Acquired absence of ovaries, unilateral; Z79.4 Long term (current) use of insulin; Z79.899 Other long term (current) drug therapy; Z88.0 Allergy status to penicillin; Z88.8 Allergy status to other drugs, medicaments and biological substances; Z82.49 Family history of ischemic heart disease and other diseases of the circulatory system; Z81.1 Family history of alcohol abuse and dependence; Z80.3 Family history of malignant neoplasm of breast; Z80.41 Family history of malignant neoplasm of ovary; Z83.3 Family history of diabetes mellitus
CPT/HCPCS: 10084; 10183; 10879; 50010; 62110; 62900; 70005